=== PATIENT | female | born 1980 | race Asian ===

== ENCOUNTER 2016-07-29 08:00 | Outpatient (CLI) | payer MEDICAID | END 2016-07-29 23:59 | disposition home or self-care (01) | DX: Z36 Encounter for antenatal screening of mother (principal) ==

== ENCOUNTER 2016-08-11 10:14 | Outpatient (CLI) | payer MEDICAID | END 2016-08-11 10:15 | disposition home or self-care (01) | DX: Z36 Encounter for antenatal screening of mother (principal) ==

== ENCOUNTER 2016-08-12 12:38 | Outpatient (CLI) | payer MEDICAID | END 2016-08-12 12:39 | disposition home or self-care (01) | DX: Z36 Encounter for antenatal screening of mother (principal) ==

== ENCOUNTER 2016-09-01 13:28 | Outpatient (CLI) | payer MEDICAID | END 2016-09-01 13:29 | disposition home or self-care (01) | LOC: LAB.R 13:28 | PROVIDERS: ATTEND Obstetrics & Gynecology | DX: Z36 Encounter for antenatal screening of mother (principal) | CPT/HCPCS: 80306 ==

== ENCOUNTER 2016-09-01 14:22 | Outpatient (CLI) | payer MEDICAID ==
[2016-09-01] MEDS ORDERED: SODIUM CHLORIDE FLUSH 0.9% 10 ML SYRINGE IVP ONE (15:28)
[2016-09-01] MEDS ORDERED: FERRIC GLUCONATE 125 MG in SODIUM CHLORIDE 0.9% 100ML 100 ML IV ONE (15:30)
[2016-09-01 15:55] LABS: BASOPHILS # (AUTO) 0.2 10^3/uL (0.0-0.1); BASOPHILS % (AUTO) 1.1 %; EOSINOPHILS # (AUTO) 0.1 10^3/uL (0.0-0.7); EOSINOPHILS % (AUTO) 0.5 %; HCT - HEMATOCRIT 26.5 % (37.0-47.0); HGB - HEMOGLOBIN 8.5 g/dL (12.0-16.0); LYMPHOCYTES # (AUTO) 3.2 10^3/uL (1.5-3.5); MEAN CORPUSCULAR HEMOGLOBIN 23.2 pg (27.0-31.0); MEAN CORPUSCULAR HGB CONC 31.8 g/dL (32.0-36.0); MEAN CORPUSCULAR VOLUME 72.8 fL (81.0-99.0); MEAN PLATELET VOLUME 8.3 fL (7.9-10.8); MONOCYTES # (AUTO) 0.8 10^3/uL (0.0-1.0); NEUTROPHILS # (AUTO) 9.6 10^3/uL (1.5-6.6); NEUTROPHILS % (AUTO) 69.4 %; NUCLEATED RED BLOOD CELLS AUTO 0.2 /100WBC; RED BLOOD COUNT 3.65 10^6/uL (4.20-5.40); RED CELL DISTRIBUTION WIDTH 16.9 % (12.0-15.0); UNCORRECTED WHITE BLOOD COUNT 13.8 x10^3/uL; WHITE BLOOD COUNT 13.8 x10^3/uL (4.8-10.8)
[2016-09-01 16:08] VITALS: BP 116/81
[2016-09-04 13:30] LABS: TEST RESULT REPORT (())
== END 2016-09-01 17:20 | disposition home or self-care (01) ==
LOC: WFO 14:22 → OB 14:24 → WFO 17:20
PROVIDERS: ATTEND Obstetrics & Gynecology
DX: O99.013 Anemia complicating pregnancy, third trimester (principal); D50.9 Iron deficiency anemia, unspecified; Z3A.30 30 weeks gestation of pregnancy; Z36 Encounter for antenatal screening of mother
CPT/HCPCS: 59025; 80306; 81599; 82728; 85025; J2916; 83540; 84466; 96365

== ENCOUNTER 2016-09-28 15:55 | Outpatient (CLI) | payer MEDICAID ==
[2016-09-28 16:47] LABS: BASOPHILS # (AUTO) 0.2 10^3/uL (0.0-0.1); EOSINOPHILS # (AUTO) 0.1 10^3/uL (0.0-0.7); EOSINOPHILS % (AUTO) 0.5 %; HCT - HEMATOCRIT 28.9 % (37.0-47.0); HGB - HEMOGLOBIN 9.3 g/dL (12.0-16.0); LYMPHOCYTES % (AUTO) 19.6 %; MEAN CORPUSCULAR HEMOGLOBIN 24.1 pg (27.0-31.0); MEAN CORPUSCULAR HGB CONC 32.3 g/dL (32.0-36.0); MEAN CORPUSCULAR VOLUME 74.6 fL (81.0-99.0); MEAN PLATELET VOLUME 7.9 fL (7.9-10.8); MONOCYTES # (AUTO) 0.8 10^3/uL (0.0-1.0); NEUTROPHILS # (AUTO) 11.4 10^3/uL (1.5-6.6); NEUTROPHILS % (AUTO) 73.9 %; RED BLOOD COUNT 3.87 10^6/uL (4.20-5.40); RED CELL DISTRIBUTION WIDTH 21.4 % (12.0-15.0); UNCORRECTED WHITE BLOOD COUNT 15.4 x10^3/uL; WHITE BLOOD COUNT 15.4 x10^3/uL (4.8-10.8)
[2016-09-28 17:48] LABS: PLATELET ESTIMATE, MANUAL INCREASED (>450,000) (NORMAL); PLATELET MORPHOLOGY NORMAL APPEARANCE (NORMAL)
== END 2016-09-28 15:56 | disposition home or self-care (01) ==
LOC: LAB 15:55
PROVIDERS: ATTEND Obstetrics & Gynecology
DX: O99.013 Anemia complicating pregnancy, third trimester (principal)
CPT/HCPCS: 36415; 85025

== ENCOUNTER 2016-10-20 08:00 | Outpatient (CLI) | payer MEDICAID | END 2016-10-20 08:01 | disposition home or self-care (01) | LOC: LAB.R 08:00 | PROVIDERS: ATTEND Obstetrics & Gynecology | DX: Z34.83 Encounter for supervision of other normal pregnancy, third trimester (principal) | CPT/HCPCS: 87081 ==

== ENCOUNTER 2016-10-20 14:26 | Outpatient (CLI) | payer MEDICAID ==
[2016-10-20 14:44] VITALS: BP 116/81
== END 2016-10-20 15:36 | disposition home or self-care (01) ==
LOC: WFO 14:26 → OB 14:27 → WFO 15:36
PROVIDERS: ATTEND Obstetrics & Gynecology
DX: O36.8130 Decreased fetal movements, third trimester, not applicable or unspecified (principal); Z3A.37 37 weeks gestation of pregnancy; Z34.83 Encounter for supervision of other normal pregnancy, third trimester
CPT/HCPCS: 59025; 82570; 84156; 87081

== ENCOUNTER 2016-11-17 07:21 | Inpatient (IN) | payer MEDICAID ==
--- NOTE | 2016-11-17 09:26 | HISTORY & PHYSICAL EXAMINATION ---
DATE OF ADMISSION: 11/17/2016 IDENTIFICATION: A 35-year-old G3, P0-0-2-0, with a 41-0/7 week intrauterine . EDC is 11/10/2016, consistent with a 24-week ultrasound. HISTORY OF PRESENT ILLNESS: This is a patient of [facility] who established late care beginning on 07/29/2016 at 25 weeks' gestation. The patient has since then consistently seen us as appropriate. This has been remarkable for late care, marijuana use, and iron deficiency anemia in which she did get an iron transfusion at 30 weeks' gestation secondary to a ferritin of 7.1. Her H and H at that time were 8.5 and 26.5. Med screen was negative. The patient had her last visit on 11/16/2016 and was 40 weeks and 6 days. She denied having any contractions, vaginal bleeding, or loss of fluid. She also reported the baby is moving well. Cervical examination, however, was difficult since the patient did not tolerate a pelvic exam that well. In any event, her cervix was 60% effaced, posterior, -3, but very soft. I discussed with the patient that at 41 weeks, the recommendations are either to do a nonstress test and conservatively manage versus doing an induction of labor. I discussed with her the risks, benefits, alternatives, indications and expectations of an induction of labor. The patient at this point in time decided she would like to proceed with an induction of labor. Jozet's BP is noted to be elevated today. Labs remarkable for mildly elevated AST. PAST MEDICAL HISTORY: Anxiety. PAST SURGICAL HISTORY: None. ALLERGIES: NO KNOWN DRUG ALLERGIES. MEDICATIONS: vitamins. SOCIAL HISTORY: She is smoking 3-10 cigarettes per day and admits to smoking methamphetamines early in this . She stopped drinking alcohol last summer. The patient is from [place]. The father of the baby is Kyle and he has been very actively involved in this . Kyle has 3 other healthy children. They will likely use the [facility] for the baby care and the patient at this point to pump, as well as give breast milk. She will desire an epidural for pain control. This is a baby boy with anticipated name of Reverend Gary Rausch. PAST OBSTETRICAL HISTORY: Two therapeutic abortions. PAST GYNECOLOGIC HISTORY: She denies any abnormal Pap smears or sexually transmitted diseases. FAMILY HISTORY: Breast and brain cancer on the paternal side. REVIEW OF SYSTEMS: She denies any nausea, vomiting, fevers, chills, diarrhea or constipation. Negative unless otherwise stated. OBJECTIVE VITAL SIGNS: Weight is 188 pounds. Height is 65 inches. BMI is 31.3. Blood pressure 130/80. GENERAL: The patient is a well-developed, a well-nourished female in no apparent distress. She is alert and oriented x3. HEAD, EYES, EARS, NOSE, AND THROAT: Within normal limits. CARDIOVASCULAR: Rate is regular, no murmurs or rubs. PULMONARY: Lungs are clear to auscultation bilaterally. ABDOMEN: Gravid, nontender. Fundal height today 39 cm. Estimated weight 8 pounds. LABS: Reveal that her Pap smear on 07/29/2016 was ASCUS, chlamydia and gonorrhea negative. High risk HPV is negative. Blood type A positive. One hour GTT is 77. Rubella is immune. Hepatitis B surface antigen is negative. GBS is negative. RPR was essentially not performed. Rubella immune, and 08/11/2016 anatomical survey at 26 weeks' gestation was consistent with dates and within normal limits, posterior placenta. Cervical length was 3.5 cm with JHONNY of 18.0 cm. ASSESSMENT 1. A 35-year-old G3, P0-0-2-0, with a 41-0/7 week intrauterine . 2. Cervix remote from delivery. 3. HELLP unless proven otherwise. PLAN 1. Will proceed to cervical ripening with conversion to Pitocin when cervix is favorable. 2. Anticipate giving the patient an epidural for pain control. 3. Anticipate checking her ferritin, as well as doing an RPR since it is not on her panel. 4. Will do a U-tox upon presentation. 5. Expect a spontaneous vaginal delivery. JOB #: [id number] EXT JOB #:[id number] BHARATH
[2016-11-17 09:27] LABS: BASOPHILS # (AUTO) 0.1 10^3/uL (0.0-0.1); BASOPHILS % (AUTO) 0.8 %; EOSINOPHILS # (AUTO) 0.1 10^3/uL (0.0-0.7); EOSINOPHILS % (AUTO) 0.5 %; HCT - HEMATOCRIT 34.3 % (37.0-47.0); LYMPHOCYTES # (AUTO) 3.4 10^3/uL (1.5-3.5); LYMPHOCYTES % (AUTO) 24.5 %; MEAN CORPUSCULAR HEMOGLOBIN 25.4 pg (27.0-31.0); MEAN CORPUSCULAR HGB CONC 32.1 g/dL (32.0-36.0); MEAN CORPUSCULAR VOLUME 78.9 fL (81.0-99.0); MEAN PLATELET VOLUME 7.6 fL (7.9-10.8); MONOCYTES # (AUTO) 0.9 10^3/uL (0.0-1.0); MONOCYTES % (AUTO) 6.5 %; NEUTROPHILS # (AUTO) 9.3 10^3/uL (1.5-6.6); NEUTROPHILS % (AUTO) 67.7 %; NUCLEATED RED BLOOD CELLS AUTO 0.3 /100WBC; RED BLOOD COUNT 4.35 10^6/uL (4.20-5.40); UNCORRECTED WHITE BLOOD COUNT 13.8 x10^3/uL; WHITE BLOOD COUNT 13.8 x10^3/uL (4.8-10.8)
[2016-11-17 09:33] LABS: CREATININE 0.6 mg/dL (0.4-1.0)
[2016-11-17 10:13] LABS: PLATELET ESTIMATE, MANUAL NORMAL (130-450,000) (NORMAL); PLATELET MORPHOLOGY 1+ GIANT PLATELETS (NORMAL)
[2016-11-17 10:16] LABS: WBC MORPHOLOGY (MULTIPLE) 1+ REACTIVE LYMPHS (NORMAL)
--- NOTE | 2016-11-17 10:53 | PROVIDER PROGRESS NOTE ---
Labor Progress Note - Uterine Monitoring Uterine Monitoring Mode: positive: External toco Contraction Frequency (min/apart): None Uterine Resting Tone: positive: Soft - Monitoring Monitor Mode: positive: External ultrasound Heart Rate Baseline: 130's Heart Rate Variability: positive: Moderate (6-25 bmp) Accelerations: positive: Present, 15x15 Decelerations: positive: None - Labor Progress Note Labor Progress Note/Additional Text: 35 yo with a 41w0d IUP New onset elevated BP's with mildly elevated AST-- HELLP unless proven otherwise Cervical ripening then pitocin Magnesium intrapartum Expect Labs, EKG, Meds, Allergy - Lab Results Lab results reviewed: Yes Fish Bones: 11/17/16 09:06 11/17/16 09:06 Other Lab Results: Lab Results x24hrs 11/17/16 11/17/16 11/17/16 Range/Units 09:06 09:06 09:06 WBC (4.8-10.8) x10^3/uL RBC (4.20-5.40) 10^6/uL Hgb (12.0-16.0) g/dL Hct (37.0-47.0) % MCV (81.0-99.0) fL MCH (27.0-31.0) pg MCHC (32.0-36.0) g/dL RDW (12.0-15.0) % Plt Count (130-450) 10^3/uL MPV (7.9-10.8) fL Neut # (1.5-6.6) 10^3/uL Lymph # (1.5-3.5) 10^3/uL [place] # (0.0-1.0) 10^3/uL Eos # (0.0-0.7) 10^3/uL Baso # (0.0-0.1) 10^3/uL Absolute Nucleated RBC x10^3/uL Nucleated RBCs /100WBC Manual Slide Review WBC Morphology (NORMAL) Platelet Estimate (NORMAL) Platelet Morphology (NORMAL) RBC Morph Micro Appear (NORMAL) Creatinine 0.6 (0.4-1.0) mg/dL Estimated GFR (MDRD) 112 (>89) Ferritin 17.4 (11.0-306.8) ng/mL AST 46 H (10-42) IU/L Lactate Dehydrogenase 175 (91-225) IU/L Urine Color Urine Clarity (CLEAR) Urine pH (5.0-7.5) PH Ur Specific [place] (1.002-1.030) Urine Protein (NEGATIVE) mg/dL Urine Glucose (UA) (NEGATIVE) mg/dL Urine Ketones (NEGATIVE) mg/dL Urine Occult Blood (NEGATIVE) Urine Nitrite (NEGATIVE) Urine Bilirubin (NEGATIVE) Urine Urobilinogen (NORMAL) E.U./dL Ur Leukocyte Esterase (NEGATIVE) Urine RBC (0-5) /HPF Urine WBC (0-5) /HPF Ur Squamous Epith Cells (<= Few) Urine Bacteria (None Seen) /HPF Urine Mucus Urine Culture Comments Urine Creatinine mg/dL Ur Total Protein Timed mg/dL Protein/Creatinin Ratio Urine Opiates Screen (NEGATIVE) Ur Oxycodone Screen (NEGATIVE) Urine Methadone Screen (NEGATIVE) Ur Propoxyphene Screen (NEGATIVE) Ur Barbiturates Screen (NEGATIVE) Ur Tricyclics Screen (NEGATIVE) Ur Phencyclidine Scrn (NEGATIVE) Ur Amphetamine Screen (NEGATIVE) U Methamphetamines Scrn (NEGATIVE) U Benzodiazepines Scrn (NEGATIVE) Urine Cocaine Screen (NEGATIVE) U Cannabinoids Screen (NEGATIVE) 11/17/16 11/16/16 11/16/16 Range/Units 09:06 09:06 08:35 WBC 13.8 H (4.8-10.8) x10^3/uL RBC 4.35 (4.20-5.40) 10^6/uL Hgb 11.0 L (12.0-16.0) g/dL Hct 34.3 L (37.0-47.0) % MCV 78.9 L (81.0-99.0) fL MCH 25.4 L (27.0-31.0) pg MCHC 32.1 (32.0-36.0) g/dL RDW 24.0 H (12.0-15.0) % Plt Count 387 (130-450) 10^3/uL MPV 7.6 L (7.9-10.8) fL Neut # 9.3 H (1.5-6.6) 10^3/uL Lymph # 3.4 (1.5-3.5) 10^3/uL [place] # 0.9 (0.0-1.0) 10^3/uL Eos # 0.1 (0.0-0.7) 10^3/uL Baso # 0.1 (0.0-0.1) 10^3/uL Absolute Nucleated RBC 0.04 x10^3/uL Nucleated RBCs 0.3 /100WBC Manual Slide Review Indicated WBC Morphology 1+ REACTIVE LYMPHS (NORMAL) Platelet Estimate NORMAL (130-450,000) (NORMAL) Platelet Morphology 1+ GIANT PLATELETS (NORMAL) RBC Morph Micro Appear 1+ POLYCHROMASIA (NORMAL) Creatinine (0.4-1.0) mg/dL Estimated GFR (MDRD) (>89) Ferritin (11.0-306.8) ng/mL AST (10-42) IU/L Lactate Dehydrogenase (91-225) IU/L Urine Color YELLOW Urine Clarity CLEAR (CLEAR) Urine pH 6.0 (5.0-7.5) PH Ur Specific [place] <=1.005 (1.002-1.030) Urine Protein NEGATIVE (NEGATIVE) mg/dL Urine Glucose (UA) NEGATIVE (NEGATIVE) mg/dL Urine Ketones NEGATIVE (NEGATIVE) mg/dL Urine Occult Blood NEGATIVE (NEGATIVE) Urine Nitrite NEGATIVE (NEGATIVE) Urine Bilirubin NEGATIVE (NEGATIVE) Urine Urobilinogen 0.2 (NORMAL) (NORMAL) E.U./dL Ur Leukocyte Esterase NEGATIVE (NEGATIVE) Urine RBC 0-5 (0-5) /HPF Urine WBC 0-3 (0-5) /HPF Ur Squamous Epith Cells NONE SEEN (<= Few) Urine Bacteria None Seen (None Seen) /HPF Urine Mucus Few Strands Urine Culture Comments NOT INDICATED Urine Creatinine 31.2 mg/dL Ur Total Protein Timed < 6 mg/dL Protein/Creatinin Ratio Not Reportable Urine Opiates Screen NEGATIVE (NEGATIVE) Ur Oxycodone Screen NEGATIVE (NEGATIVE) Urine Methadone Screen NEGATIVE (NEGATIVE) Ur Propoxyphene Screen NEGATIVE (NEGATIVE) Ur Barbiturates Screen NEGATIVE (NEGATIVE) Ur Tricyclics Screen NEGATIVE (NEGATIVE) Ur Phencyclidine Scrn NEGATIVE (NEGATIVE) Ur Amphetamine Screen NEGATIVE (NEGATIVE) U Methamphetamines Scrn NEGATIVE (NEGATIVE) U Benzodiazepines Scrn NEGATIVE (NEGATIVE) Urine Cocaine Screen NEGATIVE (NEGATIVE) U Cannabinoids Screen NEGATIVE (NEGATIVE) - Medications Medications: Ambulatory Orders Medication Instructions Recorded Confirmed Ascorbic Acid [Vitamin C] 1,000 mg PO DAILY 10/16/16 10/16/16 Ferrous Sulfate 325 mg PO DAILY 10/16/16 10/16/16 [id number]/FA/Omega3/Dha/Fish Oil 2 each PO DAILY 10/16/16 10/16/16 [ Gummies] - Allergy Allergy: Allergies Allergy/AdvReac Type Severity Reaction Status Date / Time No Known Drug Allergies Allergy Verified 10/16/16 15:07 Ascorbic Acid [Vitamin C] 1,000 mg PO DAILY 10/16/16 Ferrous Sulfate 325 mg PO DAILY 10/16/16 Sty999/FA/Omega3/Dha/Fish Oil [ Gummies] 2 each PO DAILY 10/16/16
[2016-11-17] MEDS ORDERED: ONDANSETRON 4 MG/2 ML VIAL IVP PRN ×2 (11:06→23:05)
[2016-11-17] MEDS ORDERED: fentaNYL 100 MCG/2 ML VIAL IVP PRN (11:06)
--- NOTE | 2016-11-17 11:11 | PROVIDER PROGRESS NOTE ---
Labor Progress Note - Labor Progress Note Labor Progress Note/Additional Text: Will continue to monitor patient's BP's for now. Induction on hold due to patient census.
[2016-11-17 11:24] LABS: BILIRUBIN,URINE NEGATIVE (NEGATIVE)
[2016-11-17 11:25] LABS: UR CULTURE IF IND NOT INDICATED; WBC,URINE 0-3 /HPF (0-5)
--- NOTE | 2016-11-17 15:43 | PROVIDER PROGRESS NOTE ---
Labor Progress Note - Labor Progress Note Labor Progress Note/Additional Text: 35 yo with a 41w0d IUP HELLP Other patient delivered. Will start induction of labor via cervical ripening. Will use cervidil for ripening. Patient has postponed IV start since she is afraid of needles. Carefully will watch BP's.
[2016-11-17] MEDS ORDERED: DINOPROSTONE 10 MG SUPP VG ONE (15:47)
[2016-11-17] MEDS ORDERED: ZOLPIDEM 5 MG TABLET PO PRN (16:31)
[2016-11-17] MEDS: SODIUM CHLORIDE FLUSH 0.9% 10 ML SYRINGE IVP PRN (17:00)
[2016-11-17] MEDS: CALCIUM CARBONATE CHEW 500 MG TABLET PO SCH (18:55)
[2016-11-17] MEDS ORDERED: fent/BUPIV 2 MCG/0.125% 250 ML EP ONE (22:50)
[2016-11-17] MEDS ORDERED: NALBUPHINE 20 MG/ML AMP IVP PRN (23:05)
[2016-11-17] MEDS ORDERED: LACTATED RINGERS 500 ML IV ONE (23:05)
[2016-11-17] MEDS ORDERED: diphenhydrAMINE INJ 50 MG/ML VIAL IVP PRN (23:05)
[2016-11-17] MEDS ORDERED: NALOXONE 0.4 MG/ML VIAL IVP PRN (23:05)
[2016-11-17] MEDS ORDERED: fent/BUPIV 2 MCG/0.125% 250 ML EP PRN (23:05)
[2016-11-17] MEDS ORDERED: ePHEDrine 50 MG/ML VIAL IVP PRN (23:05)
[2016-11-17] MEDS ORDERED: METOCLOPRAMIDE 10 MG/2 ML VIAL IVP PRN (23:05)
--- NOTE | 2016-11-18 01:21 | PROVIDER PROGRESS NOTE ---
Labor Progress Note - Uterine Monitoring Uterine Monitoring Mode: positive: External toco Contraction Frequency (min/apart): Q3-4 min Contraction Intensity: positive: Moderate to strong Uterine Resting Tone: positive: Soft - Monitoring Monitor Mode: positive: External ultrasound Heart Rate Baseline: 130's Heart Rate Variability: positive: Moderate (6-25 bmp) Accelerations: positive: Present, 15x15 Decelerations: positive: None Strip Review: positive: Category I - Vaginal Exam Dilation (in cm): 5 Effacement (%): 90 Station: -1 - Labor Progress Note Labor Progress Note/Additional Text: 35 yo witha 41w1d HELLP, currently normotensive and asymptomatic Active labor Epidural in place and working well Expect Closely monitor strip and BP's Labs, EKG, Meds, Allergy - Lab Results Lab results reviewed: Yes Fish Bones: 11/17/16 09:06 11/17/16 09:06 Other Lab Results: Lab Results x24hrs 11/17/16 11/17/16 11/17/16 Range/Units 09:06 09:06 09:06 WBC (4.8-10.8) x10^3/uL RBC (4.20-5.40) 10^6/uL Hgb (12.0-16.0) g/dL Hct (37.0-47.0) % MCV (81.0-99.0) fL MCH (27.0-31.0) pg MCHC (32.0-36.0) g/dL RDW (12.0-15.0) % Plt Count (130-450) 10^3/uL MPV (7.9-10.8) fL Neut # (1.5-6.6) 10^3/uL Lymph # (1.5-3.5) 10^3/uL [place] # (0.0-1.0) 10^3/uL Eos # (0.0-0.7) 10^3/uL Baso # (0.0-0.1) 10^3/uL Absolute Nucleated RBC x10^3/uL Nucleated RBCs /100WBC Manual Slide Review WBC Morphology (NORMAL) Platelet Estimate (NORMAL) Platelet Morphology (NORMAL) RBC Morph Micro Appear (NORMAL) Creatinine 0.6 (0.4-1.0) mg/dL Estimated GFR (MDRD) 112 (>89) Ferritin 17.4 (11.0-306.8) ng/mL AST 46 H (10-42) IU/L Lactate Dehydrogenase 175 (91-225) IU/L Urine Color Urine Clarity Urine pH Ur Specific [place] Urine Protein Urine Glucose (UA) Urine Ketones Urine Occult Blood Urine Nitrite Urine Bilirubin Urine Urobilinogen Ur Leukocyte Esterase Urine RBC Urine WBC Urine WBC Clumps Ur Epithelial Cells Ur Squamous Epith Cells Urine Crystals Amorphous Sediment Urine Bacteria Urine Casts Urine Starch Urine Mucus Urine Trichomonas Urine Yeast Urine Sperm Ur Oval Fat Bodies Urine Culture Comments Urine Creatinine Ur Total Protein Timed Protein/Creatinin Ratio Urine Opiates Screen Ur Oxycodone Screen Urine Methadone Screen Ur Propoxyphene Screen Ur Barbiturates Screen Ur Tricyclics Screen Ur Phencyclidine Scrn Ur Amphetamine Screen U Methamphetamines Scrn U Benzodiazepines Scrn Urine Cocaine Screen U Cannabinoids Screen 11/17/16 11/17/16 11/17/16 Range/Units 09:06 08:35 08:35 WBC 13.8 H (4.8-10.8) x10^3/uL RBC 4.35 (4.20-5.40) 10^6/uL Hgb 11.0 L (12.0-16.0) g/dL Hct 34.3 L (37.0-47.0) % MCV 78.9 L (81.0-99.0) fL MCH 25.4 L (27.0-31.0) pg MCHC 32.1 (32.0-36.0) g/dL RDW 24.0 H (12.0-15.0) % Plt Count 387 (130-450) 10^3/uL MPV 7.6 L (7.9-10.8) fL Neut # 9.3 H (1.5-6.6) 10^3/uL Lymph # 3.4 (1.5-3.5) 10^3/uL [place] # 0.9 (0.0-1.0) 10^3/uL Eos # 0.1 (0.0-0.7) 10^3/uL Baso # 0.1 (0.0-0.1) 10^3/uL Absolute Nucleated RBC 0.04 x10^3/uL Nucleated RBCs 0.3 /100WBC Manual Slide Review Indicated WBC Morphology 1+ REACTIVE LYMPHS (NORMAL) Platelet Estimate NORMAL (130-450,000) (NORMAL) Platelet Morphology 1+ GIANT PLATELETS (NORMAL) RBC Morph Micro Appear 1+ POLYCHROMASIA (NORMAL) Creatinine (0.4-1.0) mg/dL Estimated GFR (MDRD) (>89) Ferritin (11.0-306.8) ng/mL AST (10-42) IU/L Lactate Dehydrogenase (91-225) IU/L Urine Color YELLOW Urine Clarity CLEAR Urine pH 6.0 Ur Specific [place] <=1.005 Urine Protein NEGATIVE Urine Glucose (UA) NEGATIVE Urine Ketones NEGATIVE Urine Occult Blood NEGATIVE Urine Nitrite NEGATIVE Urine Bilirubin NEGATIVE Urine Urobilinogen 0.2 (NORMAL) Ur Leukocyte Esterase NEGATIVE Urine RBC 0-5 Urine WBC 0-3 Urine WBC Clumps Ur Epithelial Cells Ur Squamous Epith Cells NONE SEEN Urine Crystals Amorphous Sediment Urine Bacteria None Seen Urine Casts Urine Starch Urine Mucus Few Strands Urine Trichomonas Urine Yeast Urine Sperm Ur Oval Fat Bodies Urine Culture Comments NOT INDICATED Urine Creatinine 31.3 Ur Total Protein Timed < 6 Protein/Creatinin Ratio Not Reportable Urine Opiates Screen NEGATIVE Ur Oxycodone Screen NEGATIVE Urine Methadone Screen NEGATIVE Ur Propoxyphene Screen NEGATIVE Ur Barbiturates Screen NEGATIVE Ur Tricyclics Screen NEGATIVE Ur Phencyclidine Scrn NEGATIVE Ur Amphetamine Screen NEGATIVE U Methamphetamines Scrn NEGATIVE U Benzodiazepines Scrn NEGATIVE Urine Cocaine Screen NEGATIVE U Cannabinoids Screen NEGATIVE 11/16/16 11/16/16 Range/Units 09:06 08:35 WBC (4.8-10.8) x10^3/uL RBC (4.20-5.40) 10^6/uL Hgb (12.0-16.0) g/dL Hct (37.0-47.0) % MCV (81.0-99.0) fL MCH (27.0-31.0) pg MCHC (32.0-36.0) g/dL RDW (12.0-15.0) % Plt Count (130-450) 10^3/uL MPV (7.9-10.8) fL Neut # (1.5-6.6) 10^3/uL Lymph # (1.5-3.5) 10^3/uL [place] # (0.0-1.0) 10^3/uL Eos # (0.0-0.7) 10^3/uL Baso # (0.0-0.1) 10^3/uL Absolute Nucleated RBC x10^3/uL Nucleated RBCs /100WBC Manual Slide Review WBC Morphology (NORMAL) Platelet Estimate (NORMAL) Platelet Morphology (NORMAL) RBC Morph Micro Appear (NORMAL) Creatinine (0.4-1.0) mg/dL Estimated GFR (MDRD) (>89) Ferritin (11.0-306.8) ng/mL AST (10-42) IU/L Lactate Dehydrogenase (91-225) IU/L Urine Color Cancelled Urine Clarity Cancelled Urine pH Cancelled Ur Specific [place] Cancelled Urine Protein Cancelled Urine Glucose (UA) Cancelled Urine Ketones Cancelled Urine Occult Blood Cancelled Urine Nitrite Cancelled Urine Bilirubin Cancelled Urine Urobilinogen Cancelled Ur Leukocyte Esterase Cancelled Urine RBC Cancelled Urine WBC Cancelled Urine WBC Clumps Cancelled Ur Epithelial Cells Cancelled Ur Squamous Epith Cells Cancelled Urine Crystals Cancelled Amorphous Sediment Cancelled Urine Bacteria Cancelled Urine Casts Cancelled Urine Starch Cancelled Urine Mucus Cancelled Urine Trichomonas Cancelled Urine Yeast Cancelled Urine Sperm Cancelled Ur Oval Fat Bodies Cancelled Urine Culture Comments Cancelled Urine Creatinine Cancelled Ur Total Protein Timed Cancelled Protein/Creatinin Ratio Cancelled Urine Opiates Screen Cancelled Ur Oxycodone Screen Cancelled Urine Methadone Screen Cancelled Ur Propoxyphene Screen Cancelled Ur Barbiturates Screen Cancelled Ur Tricyclics Screen Cancelled Ur Phencyclidine Scrn Cancelled Ur Amphetamine Screen Cancelled U Methamphetamines Scrn Cancelled U Benzodiazepines Scrn Cancelled Urine Cocaine Screen Cancelled U Cannabinoids Screen Cancelled - Medications Medications: Ambulatory Orders Medication Instructions Recorded Confirmed Ascorbic Acid [Vitamin C] 1,000 mg PO DAILY 10/16/16 10/16/16 Ferrous Sulfate 325 mg PO DAILY 10/16/16 10/16/16 [id number]/FA/Omega3/Dha/Fish Oil 2 each PO DAILY 10/16/16 10/16/16 [ Gummies] - Allergy Allergy: Allergies Allergy/AdvReac Type Severity Reaction Status Date / Time No Known Drug Allergies Allergy Verified 10/16/16 15:07 Ascorbic Acid [Vitamin C] 1,000 mg PO DAILY 10/16/16 Ferrous Sulfate 325 mg PO DAILY 10/16/16 [id number]/FA/Omega3/Dha/Fish Oil [ Gummies] 2 each PO DAILY 10/16/16
[2016-11-18] MEDS: ACETAMINOPHEN 325 MG TABLET PO SCH ×2 (01:36→01:41)
[2016-11-18] MEDS ORDERED: MINERAL OIL LIGHT 10 ML MC ONE (05:35)
[2016-11-18] MEDS ORDERED: OXYTOCIN/LACTATED RINGERS 250 ML IV ONE ×2 (05:35→08:39)
--- NOTE | 2016-11-18 06:05 | PROVIDER PROGRESS NOTE ---
Labor Progress Note - Uterine Monitoring Uterine Monitoring Mode: positive: External toco Contraction Frequency (min/apart): Q2-4 Contraction Intensity: positive: Moderate to strong Uterine Resting Tone: positive: Soft - Monitoring Monitor Mode: positive: External ultrasound Heart Rate Variability: positive: Moderate (6-25 bmp) Accelerations: positive: Present, 15x15 Decelerations: positive: None Strip Review: positive: Category I - Vaginal Exam Dilation (in cm): 10 Effacement (%): 100 - Labor Progress Note Labor Progress Note/Additional Text: 35 yo with a 41w1d IUP Active labor HELLP-- soft call with elevated BP's yesterday AM and mildly elevated AST 46. No other clinical symptoms such as RUQ tenderness, headaches, visual changes, facial edema etc. MgSO4 held at this time. Continue epidural for pain control Expect shortly MgSO4 after delivery x 12 hours Repeat pre-eclampsia labs after delivery
--- NOTE | 2016-11-18 06:52 | PROVIDER PROGRESS NOTE ---
Labor Progress Note - Uterine Monitoring Uterine Monitoring Mode: positive: External toco Contraction Frequency (min/apart): Q2-4 minutes Contraction Intensity: positive: Moderate Uterine Resting Tone: positive: Soft - Monitoring Monitor Mode: positive: External ultrasound, Spiral electrode Heart Rate Baseline: 120 - 130's Heart Rate Variability: positive: Moderate (6-25 bmp) Accelerations: positive: Present, 15x15 Decelerations: positive: Early Strip Review: positive: Category I - Vaginal Exam Dilation (in cm): 10 Effacement (%): 100 Station: 0 (Platypelloid maternal pelvis) - Labor Progress Note Labor Progress Note/Additional Text: 35 yo with a 41w1d IUP Soft call HELLP Active labor Epidural in place and working well Reassuring and maternal status On exam, maternal pelvis feels platypelloid, concerning for failure to descend. No significant scalp edema yet. Will continue to push. If no significant descent may have to consider a delivery. L&D Objective - Patient Data Weight: Weight 11/16/16 11/17/16 11/18/16 23:59 23:59 23:59 Weight (kg) 85.275 kg Intake & Output: Intake and Output Totals x24h 11/16/16 11/17/16 11/18/16 23:59 23:59 23:59 Intake Total 2000 300 Output Total 1 400 Balance 1998 - Lab Results Lab Results: 11/17/16 09:06 11/17/16 09:06 Other Lab Results: Lab Results x24hrs 11/17/16 11/17/16 11/17/16 Range/Units 09:06 09:06 09:06 WBC (4.8-10.8) x10^3/uL RBC (4.20-5.40) 10^6/uL Hgb (12.0-16.0) g/dL Hct (37.0-47.0) % MCV (81.0-99.0) fL MCH (27.0-31.0) pg MCHC (32.0-36.0) g/dL RDW (12.0-15.0) % Plt Count (130-450) 10^3/uL MPV (7.9-10.8) fL Neut # (1.5-6.6) 10^3/uL Lymph # (1.5-3.5) 10^3/uL [place] # (0.0-1.0) 10^3/uL Eos # (0.0-0.7) 10^3/uL Baso # (0.0-0.1) 10^3/uL Absolute Nucleated RBC x10^3/uL Nucleated RBCs /100WBC Manual Slide Review WBC Morphology (NORMAL) Platelet Estimate (NORMAL) Platelet Morphology (NORMAL) RBC Morph Micro Appear (NORMAL) Creatinine 0.6 (0.4-1.0) mg/dL Estimated GFR (MDRD) 112 (>89) Ferritin 17.4 (11.0-306.8) ng/mL AST 46 H (10-42) IU/L Lactate Dehydrogenase 175 (91-225) IU/L Urine Color Urine Clarity Urine pH Ur Specific [place] Urine Protein Urine Glucose (UA) Urine Ketones Urine Occult Blood Urine Nitrite Urine Bilirubin Urine Urobilinogen Ur Leukocyte Esterase Urine RBC Urine WBC Urine WBC Clumps Ur Epithelial Cells Ur Squamous Epith Cells Urine Crystals Amorphous Sediment Urine Bacteria Urine Casts Urine Starch Urine Mucus Urine Trichomonas Urine Yeast Urine Sperm Ur Oval Fat Bodies Urine Culture Comments Urine Creatinine Ur Total Protein Timed Protein/Creatinin Ratio Urine Opiates Screen Ur Oxycodone Screen Urine Methadone Screen Ur Propoxyphene Screen Ur Barbiturates Screen Ur Tricyclics Screen Ur Phencyclidine Scrn Ur Amphetamine Screen U Methamphetamines Scrn U Benzodiazepines Scrn Urine Cocaine Screen U Cannabinoids Screen 11/17/16 11/17/16 11/17/16 Range/Units 09:06 08:35 08:35 WBC 13.8 H (4.8-10.8) x10^3/uL RBC 4.35 (4.20-5.40) 10^6/uL Hgb 11.0 L (12.0-16.0) g/dL Hct 34.3 L (37.0-47.0) % MCV 78.9 L (81.0-99.0) fL MCH 25.4 L (27.0-31.0) pg MCHC 32.1 (32.0-36.0) g/dL RDW 24.0 H (12.0-15.0) % Plt Count 387 (130-450) 10^3/uL MPV 7.6 L (7.9-10.8) fL Neut # 9.3 H (1.5-6.6) 10^3/uL Lymph # 3.4 (1.5-3.5) 10^3/uL [place] # 0.9 (0.0-1.0) 10^3/uL Eos # 0.1 (0.0-0.7) 10^3/uL Baso # 0.1 (0.0-0.1) 10^3/uL Absolute Nucleated RBC 0.04 x10^3/uL Nucleated RBCs 0.3 /100WBC Manual Slide Review Indicated WBC Morphology 1+ REACTIVE LYMPHS (NORMAL) Platelet Estimate NORMAL (130-450,000) (NORMAL) Platelet Morphology 1+ GIANT PLATELETS (NORMAL) RBC Morph Micro Appear 1+ POLYCHROMASIA (NORMAL) Creatinine (0.4-1.0) mg/dL Estimated GFR (MDRD) (>89) Ferritin (11.0-306.8) ng/mL AST (10-42) IU/L Lactate Dehydrogenase (91-225) IU/L Urine Color YELLOW Urine Clarity CLEAR Urine pH 6.0 Ur Specific [place] <=1.005 Urine Protein NEGATIVE Urine Glucose (UA) NEGATIVE Urine Ketones NEGATIVE Urine Occult Blood NEGATIVE Urine Nitrite NEGATIVE Urine Bilirubin NEGATIVE Urine Urobilinogen 0.2 (NORMAL) Ur Leukocyte Esterase NEGATIVE Urine RBC 0-5 Urine WBC 0-3 Urine WBC Clumps Ur Epithelial Cells Ur Squamous Epith Cells NONE SEEN Urine Crystals Amorphous Sediment Urine Bacteria None Seen Urine Casts Urine Starch Urine Mucus Few Strands Urine Trichomonas Urine Yeast Urine Sperm Ur Oval Fat Bodies Urine Culture Comments NOT INDICATED Urine Creatinine 31.3 Ur Total Protein Timed < 6 Protein/Creatinin Ratio Not Reportable Urine Opiates Screen NEGATIVE Ur Oxycodone Screen NEGATIVE Urine Methadone Screen NEGATIVE Ur Propoxyphene Screen NEGATIVE Ur Barbiturates Screen NEGATIVE Ur Tricyclics Screen NEGATIVE Ur Phencyclidine Scrn NEGATIVE Ur Amphetamine Screen NEGATIVE U Methamphetamines Scrn NEGATIVE U Benzodiazepines Scrn NEGATIVE Urine Cocaine Screen NEGATIVE U Cannabinoids Screen NEGATIVE 11/16/16 11/16/16 Range/Units 09:06 08:35 WBC (4.8-10.8) x10^3/uL RBC (4.20-5.40) 10^6/uL Hgb (12.0-16.0) g/dL Hct (37.0-47.0) % MCV (81.0-99.0) fL MCH (27.0-31.0) pg MCHC (32.0-36.0) g/dL RDW (12.0-15.0) % Plt Count (130-450) 10^3/uL MPV (7.9-10.8) fL Neut # (1.5-6.6) 10^3/uL Lymph # (1.5-3.5) 10^3/uL [place] # (0.0-1.0) 10^3/uL Eos # (0.0-0.7) 10^3/uL Baso # (0.0-0.1) 10^3/uL Absolute Nucleated RBC x10^3/uL Nucleated RBCs /100WBC Manual Slide Review WBC Morphology (NORMAL) Platelet Estimate (NORMAL) Platelet Morphology (NORMAL) RBC Morph Micro Appear (NORMAL) Creatinine (0.4-1.0) mg/dL Estimated GFR (MDRD) (>89) Ferritin (11.0-306.8) ng/mL AST (10-42) IU/L Lactate Dehydrogenase (91-225) IU/L Urine Color Cancelled Urine Clarity Cancelled Urine pH Cancelled Ur Specific [place] Cancelled Urine Protein Cancelled Urine Glucose (UA) Cancelled Urine Ketones Cancelled Urine Occult Blood Cancelled Urine Nitrite Cancelled Urine Bilirubin Cancelled Urine Urobilinogen Cancelled Ur Leukocyte Esterase Cancelled Urine RBC Cancelled Urine WBC Cancelled Urine WBC Clumps Cancelled Ur Epithelial Cells Cancelled Ur Squamous Epith Cells Cancelled Urine Crystals Cancelled Amorphous Sediment Cancelled Urine Bacteria Cancelled Urine Casts Cancelled Urine Starch Cancelled Urine Mucus Cancelled Urine Trichomonas Cancelled Urine Yeast Cancelled Urine Sperm Cancelled Ur Oval Fat Bodies Cancelled Urine Culture Comments Cancelled Urine Creatinine Cancelled Ur Total Protein Timed Cancelled Protein/Creatinin Ratio Cancelled Urine Opiates Screen Cancelled Ur Oxycodone Screen Cancelled Urine Methadone Screen Cancelled Ur Propoxyphene Screen Cancelled Ur Barbiturates Screen Cancelled Ur Tricyclics Screen Cancelled Ur Phencyclidine Scrn Cancelled Ur Amphetamine Screen Cancelled U Methamphetamines Scrn Cancelled U Benzodiazepines Scrn Cancelled Urine Cocaine Screen Cancelled U Cannabinoids Screen Cancelled - Current Medication Orders Current Medication Orders: Current Medications Generic Name Dose Route Start Last Admin Trade Name Freq PRN Reason Stop Dose Admin Acetaminophen 650 mg 11/17/16 12:00 11/18/16 01:41 Tylenol PO Not Given Q6H VINEET Calcium Carbonate/Glycine 500 mg 11/17/16 18:00 11/17/16 18:55 Tums PO 500 mg BID VINEET Administration Fentanyl 50 mcg 11/17/16 11:06 11/17/16 21:10 Fentanyl IVP 50 mcg Q1H PRN Administration PAIN Ranitidine HCl 150 mg 11/17/16 17:30 11/17/16 18:55 Zantac PO 150 mg DAILY VINEET Administration Sodium Chloride 10 ml 11/17/16 11:06 11/17/16 17:00 Normal Saline Flush 0.9% IVP 10 ml PRN PRN Administration NEEDED PER PROVIDER ORDERS
[2016-11-18] MEDS ORDERED: LIDOCAINE 1% 50 ML MDV ONE (07:29)
--- NOTE | 2016-11-18 08:38 | DELIVERY NOTE ---
Delivery Note - Labor Labor: positive: Spontaneous - Delivery Method Delivery Method: positive: Spontaneous vaginal delivery - Presentation Presentation: positive: Vertex, RADHA - right occiput anterior - Nuchal Cord Nuchal Cord: positive: None - Amniotic Fluid Description Amniotic Fluid Description: positive: Light meconium - Episiotomy Type Episiotomy Type: positive: None - Laceration Laceration: positive: 1st degree - Delivery Outcome Delivery Outcome: positive: Livebirth - [place]: positive: Bulb syringe [place] sex: positive: Male : 9 : 9 - Cord Cord: positive: 3 vessels - Placenta Placenta: positive: Intact, Spontaneous, Meconium stained - Estimated Blood Loss Estimated Blood Loss (in cc): 300 - Post Delivery Events Post Delivery Events: positive: No post delivery events (35 yo with a 41w0d presented to L&D for a postdates induction of labor. Induction held secondary to high patient census. BP's elevated to 150's/100's. Pre-eclampsia labs only signficicant for mildly elevated AST 46. Soft call for HELLP made. BP' s improved spontaneously but still occasional elevations. The patient was observed due to patient census, but spontaneously went into labor. Ronal received an epidural for pain control from Dr. Bree Buitrago. of a viable male named "Whitney." Apgars 9/9, weight 5 lbs, 15.9 oz. Placenta mildly adherent but did deliver spontaneously, intact with 3 VC. Placenta to be sent to pathology given late care, H/O ilicit drug use in early , recent elevated BP's and small weight. Superficial 1st degree laceration on right medial labia majora did not require repair. EBL 300 mL, no complications. Will repeat pre-eclampsia labs. Routine care.)
[2016-11-18] MEDS ORDERED: WITCH HAZEL/GLYCERIN 1 EACH MED..PAD TOP PRN (08:39)
[2016-11-18] MEDS ORDERED: MAGNESIUM HYDROXIDE 2,400 MG/30 ML UDC PO PRN (08:39)
[2016-11-18] MEDS ORDERED: HYDROCORTISONE 1% CREAM 28 GM TUBE PR PRN (08:39)
[2016-11-18] MEDS ORDERED: HYDROCORTISONE/PRAMOXINE 10 GM PR PRN (08:39)
[2016-11-18] MEDS ORDERED: LACTATED RINGERS 1,000 ML IV SCH (09:00)
[2016-11-18 10:46] LABS: BASOPHILS # (AUTO) 0.1 10^3/uL (0.0-0.1); BASOPHILS % (AUTO) 0.4 %; HCT - HEMATOCRIT 30.7 % (37.0-47.0); HGB - HEMOGLOBIN 9.8 g/dL (12.0-16.0); LYMPHOCYTES # (AUTO) 2.2 10^3/uL (1.5-3.5); LYMPHOCYTES % (AUTO) 9.2 %; MEAN CORPUSCULAR HEMOGLOBIN 25.3 pg (27.0-31.0); MEAN CORPUSCULAR HGB CONC 31.8 g/dL (32.0-36.0); MEAN CORPUSCULAR VOLUME 79.4 fL (81.0-99.0); MEAN PLATELET VOLUME 7.7 fL (7.9-10.8); MONOCYTES # (AUTO) 1.4 10^3/uL (0.0-1.0); MONOCYTES % (AUTO) 5.9 %; NEUTROPHILS # (AUTO) 20.1 10^3/uL (1.5-6.6); NEUTROPHILS % (AUTO) 84.5 %; NUCLEATED RED BLOOD CELLS AUTO 0.1 /100WBC; RED BLOOD COUNT 3.86 10^6/uL (4.20-5.40); RED CELL DISTRIBUTION WIDTH 23.5 % (12.0-15.0); UNCORRECTED WHITE BLOOD COUNT 23.8 x10^3/uL; WHITE BLOOD COUNT 23.8 x10^3/uL (4.8-10.8)
[2016-11-18 10:51] LABS: CREATININE 0.6 mg/dL (0.4-1.0); URIC ACID 7.5 mg/dL (2.6-7.2)
--- NOTE | 2016-11-18 11:15 | PROVIDER PROGRESS NOTE ---
Subjective - Prog Note Date Prog Note Date: 11/18/16 Prog Note Time: 11:13 - Subjective Pt reports feeling: Improved Subjective: Patient sitting in bed, ready to eat breakfast. Baby getting IV glucose. Doing well and without complaints. SO Kyle on couch, holding baby. Objective - Vital Signs/Intake & Output Reviewed Vital Signs: Yes Vital Signs: Vital Signs x48h Pulse Resp BP Pulse Ox 11/18/16 08:45 92 142/91 H 99 11/18/16 08:30 108 H 145/92 H 99 11/18/16 08:15 100 151/92 H 11/18/16 08:00 100 19 148/97 H 99 Intake & Output: Intake & Output 11/15/16 11/16/16 11/17/16 11/18/16 23:59 23:59 23:59 23:59 Intake Total 1999 300 Output Total 400 Balance 1998 - Objective General Appearance: positive: No acute distress Abdomen: positive: Non-tender (Firm fundus) - Lab Results Fish Bones: 11/18/16 10:30 11/18/16 10:30 Other Labs: Lab Results x24hrs 11/18/16 11/18/16 11/18/16 Range/Units 10:30 10:30 10:30 WBC 23.8 H (4.8-10.8) x10^3/uL RBC 3.86 L (4.20-5.40) 10^6/uL Hgb 9.8 L (12.0-16.0) g/dL Hct 30.7 L (37.0-47.0) % MCV 79.4 L (81.0-99.0) fL MCH 25.3 L (27.0-31.0) pg MCHC 31.8 L (32.0-36.0) g/dL RDW 23.5 H (12.0-15.0) % Plt Count 347 (130-450) 10^3/uL MPV 7.7 L (7.9-10.8) fL Neut # 20.1 H (1.5-6.6) 10^3/uL Lymph # 2.2 (1.5-3.5) 10^3/uL [place] # 1.4 H (0.0-1.0) 10^3/uL Eos # 0.0 (0.0-0.7) 10^3/uL Baso # 0.1 (0.0-0.1) 10^3/uL Absolute Nucleated RBC 0.03 x10^3/uL Nucleated RBCs 0.1 /100WBC Manual Slide Review Indicated RBC Morph Micro Appear 3+ ANISOCYTOSIS (NORMAL) Creatinine 0.6 (0.4-1.0) mg/dL Estimated GFR (MDRD) 112 (>89) Uric Acid 7.5 H (2.6-7.2) mg/dL AST 43 H (10-42) IU/L Lactate Dehydrogenase 223 (91-225) IU/L Urine Color Urine Clarity Urine pH Ur Specific [place] Urine Protein Urine Glucose (UA) Urine Ketones Urine Occult Blood Urine Nitrite Urine Bilirubin Urine Urobilinogen Ur Leukocyte Esterase Urine RBC Urine WBC Urine WBC Clumps Ur Epithelial Cells Ur Squamous Epith Cells Urine Crystals Amorphous Sediment Urine Bacteria Urine Casts Urine Starch Urine Mucus Urine Trichomonas Urine Yeast Urine Sperm Ur Oval Fat Bodies Urine Culture Comments Urine Creatinine mg/dL Ur Total Protein Timed mg/dL Protein/Creatinin Ratio Urine Opiates Screen Ur Oxycodone Screen Urine Methadone Screen Ur Propoxyphene Screen Ur Barbiturates Screen Ur Tricyclics Screen Ur Phencyclidine Scrn Ur Amphetamine Screen U Methamphetamines Scrn U Benzodiazepines Scrn Urine Cocaine Screen U Cannabinoids Screen 11/17/16 11/17/16 11/16/16 Range/Units 08:35 08:35 09:06 WBC (4.8-10.8) x10^3/uL RBC (4.20-5.40) 10^6/uL Hgb (12.0-16.0) g/dL Hct (37.0-47.0) % MCV (81.0-99.0) fL MCH (27.0-31.0) pg MCHC (32.0-36.0) g/dL RDW (12.0-15.0) % Plt Count (130-450) 10^3/uL MPV (7.9-10.8) fL Neut # (1.5-6.6) 10^3/uL Lymph # (1.5-3.5) 10^3/uL [place] # (0.0-1.0) 10^3/uL Eos # (0.0-0.7) 10^3/uL Baso # (0.0-0.1) 10^3/uL Absolute Nucleated RBC x10^3/uL Nucleated RBCs /100WBC Manual Slide Review RBC Morph Micro Appear (NORMAL) Creatinine (0.4-1.0) mg/dL Estimated GFR (MDRD) (>89) Uric Acid (2.6-7.2) mg/dL AST (10-42) IU/L Lactate Dehydrogenase (91-225) IU/L Urine Color YELLOW Cancelled Urine Clarity CLEAR Cancelled Urine pH 6.0 Cancelled Ur Specific [place] <=1.005 Cancelled Urine Protein NEGATIVE Cancelled Urine Glucose (UA) NEGATIVE Cancelled Urine Ketones NEGATIVE Cancelled Urine Occult Blood NEGATIVE Cancelled Urine Nitrite NEGATIVE Cancelled Urine Bilirubin NEGATIVE Cancelled Urine Urobilinogen 0.2 (NORMAL) Cancelled Ur Leukocyte Esterase NEGATIVE Cancelled Urine RBC 0-5 Cancelled Urine WBC 0-3 Cancelled Urine WBC Clumps Cancelled Ur Epithelial Cells Cancelled Ur Squamous Epith Cells NONE SEEN Cancelled Urine Crystals Cancelled Amorphous Sediment Cancelled Urine Bacteria None Seen Cancelled Urine Casts Cancelled Urine Starch Cancelled Urine Mucus Few Strands Cancelled Urine Trichomonas Cancelled Urine Yeast Cancelled Urine Sperm Cancelled Ur Oval Fat Bodies Cancelled Urine Culture Comments NOT INDICATED Cancelled Urine Creatinine 31.3 mg/dL Ur Total Protein Timed < 6 mg/dL Protein/Creatinin Ratio Not Reportable Urine Opiates Screen NEGATIVE Cancelled Ur Oxycodone Screen NEGATIVE Cancelled Urine Methadone Screen NEGATIVE Cancelled Ur Propoxyphene Screen NEGATIVE Cancelled Ur Barbiturates Screen NEGATIVE Cancelled Ur Tricyclics Screen NEGATIVE Cancelled Ur Phencyclidine Scrn NEGATIVE Cancelled Ur Amphetamine Screen NEGATIVE Cancelled U Methamphetamines Scrn NEGATIVE Cancelled U Benzodiazepines Scrn NEGATIVE Cancelled Urine Cocaine Screen NEGATIVE Cancelled U Cannabinoids Screen NEGATIVE Cancelled Assessment/Plan - Problem List (1) HELLP syndrome, delivered, current hospitalization Impression: 35 yo S/p this AM Recovering well Improved AST this AM Mildly elevated BP's Will continue to watch patient carefully. Will give MgSO4 x 12 hours for seizure prophlyaxis. Routine care Likely home on PPD #2, 11/20/2016 Rxs for Tylenol, Motrin, and colace eFaxed via [email or web address] to [facility] [facility]. Handwritten Rx for vicodin #20 tabs also written (have not given yet) for home meds Labs, EKG, Meds, Allergy - Lab Results Fish Bones: 11/18/16 10:30 11/18/16 10:30 Other Lab Results: Lab Results x24hrs 11/18/16 11/18/16 11/18/16 Range/Units 10:30 10:30 10:30 WBC 23.8 H (4.8-10.8) x10^3/uL RBC 3.86 L (4.20-5.40) 10^6/uL Hgb 9.8 L (12.0-16.0) g/dL Hct 30.7 L (37.0-47.0) % MCV 79.4 L (81.0-99.0) fL MCH 25.3 L (27.0-31.0) pg MCHC 31.8 L (32.0-36.0) g/dL RDW 23.5 H (12.0-15.0) % Plt Count 347 (130-450) 10^3/uL MPV 7.7 L (7.9-10.8) fL Neut # 20.1 H (1.5-6.6) 10^3/uL Lymph # 2.2 (1.5-3.5) 10^3/uL [place] # 1.4 H (0.0-1.0) 10^3/uL Eos # 0.0 (0.0-0.7) 10^3/uL Baso # 0.1 (0.0-0.1) 10^3/uL Absolute Nucleated RBC 0.03 x10^3/uL Nucleated RBCs 0.1 /100WBC Manual Slide Review Indicated RBC Morph Micro Appear 3+ ANISOCYTOSIS (NORMAL) Creatinine 0.6 (0.4-1.0) mg/dL Estimated GFR (MDRD) 112 (>89) Uric Acid 7.5 H (2.6-7.2) mg/dL AST 43 H (10-42) IU/L Lactate Dehydrogenase 223 (91-225) IU/L Urine Color Urine Clarity (CLEAR) Urine pH (5.0-7.5) PH Ur Specific [place] (1.002-1.030) Urine Protein (NEGATIVE) mg/dL Urine Glucose (UA) (NEGATIVE) mg/dL Urine Ketones (NEGATIVE) mg/dL Urine Occult Blood (NEGATIVE) Urine Nitrite (NEGATIVE) Urine Bilirubin (NEGATIVE) Urine Urobilinogen (NORMAL) E.U./dL Ur Leukocyte Esterase (NEGATIVE) Urine RBC (0-5) /HPF Urine WBC (0-5) /HPF Ur Squamous Epith Cells (<= Few) Urine Bacteria (None Seen) /HPF Urine Mucus Urine Culture Comments Urine Creatinine mg/dL Ur Total Protein Timed mg/dL Protein/Creatinin Ratio Urine Opiates Screen (NEGATIVE) Ur Oxycodone Screen (NEGATIVE) Urine Methadone Screen (NEGATIVE) Ur Propoxyphene Screen (NEGATIVE) Ur Barbiturates Screen (NEGATIVE) Ur Tricyclics Screen (NEGATIVE) Ur Phencyclidine Scrn (NEGATIVE) Ur Amphetamine Screen (NEGATIVE) U Methamphetamines Scrn (NEGATIVE) U Benzodiazepines Scrn (NEGATIVE) Urine Cocaine Screen (NEGATIVE) U Cannabinoids Screen (NEGATIVE) 11/17/16 11/17/16 Range/Units 08:35 08:35 WBC (4.8-10.8) x10^3/uL RBC (4.20-5.40) 10^6/uL Hgb (12.0-16.0) g/dL Hct (37.0-47.0) % MCV (81.0-99.0) fL MCH (27.0-31.0) pg MCHC (32.0-36.0) g/dL RDW (12.0-15.0) % Plt Count (130-450) 10^3/uL MPV (7.9-10.8) fL Neut # (1.5-6.6) 10^3/uL Lymph # (1.5-3.5) 10^3/uL [place] # (0.0-1.0) 10^3/uL Eos # (0.0-0.7) 10^3/uL Baso # (0.0-0.1) 10^3/uL Absolute Nucleated RBC x10^3/uL Nucleated RBCs /100WBC Manual Slide Review RBC Morph Micro Appear (NORMAL) Creatinine (0.4-1.0) mg/dL Estimated GFR (MDRD) (>89) Uric Acid (2.6-7.2) mg/dL AST (10-42) IU/L Lactate Dehydrogenase (91-225) IU/L Urine Color YELLOW Urine Clarity CLEAR (CLEAR) Urine pH 6.0 (5.0-7.5) PH Ur Specific [place] <=1.005 (1.002-1.030) Urine Protein NEGATIVE (NEGATIVE) mg/dL Urine Glucose (UA) NEGATIVE (NEGATIVE) mg/dL Urine Ketones NEGATIVE (NEGATIVE) mg/dL Urine Occult Blood NEGATIVE (NEGATIVE) Urine Nitrite NEGATIVE (NEGATIVE) Urine Bilirubin NEGATIVE (NEGATIVE) Urine Urobilinogen 0.2 (NORMAL) (NORMAL) E.U./dL Ur Leukocyte Esterase NEGATIVE (NEGATIVE) Urine RBC 0-5 (0-5) /HPF Urine WBC 0-3 (0-5) /HPF Ur Squamous Epith Cells NONE SEEN (<= Few) Urine Bacteria None Seen (None Seen) /HPF Urine Mucus Few Strands Urine Culture Comments NOT INDICATED Urine Creatinine 31.3 mg/dL Ur Total Protein Timed < 6 mg/dL Protein/Creatinin Ratio Not Reportable Urine Opiates Screen NEGATIVE (NEGATIVE) Ur Oxycodone Screen NEGATIVE (NEGATIVE) Urine Methadone Screen NEGATIVE (NEGATIVE) Ur Propoxyphene Screen NEGATIVE (NEGATIVE) Ur Barbiturates Screen NEGATIVE (NEGATIVE) Ur Tricyclics Screen NEGATIVE (NEGATIVE) Ur Phencyclidine Scrn NEGATIVE (NEGATIVE) Ur Amphetamine Screen NEGATIVE (NEGATIVE) U Methamphetamines Scrn NEGATIVE (NEGATIVE) U Benzodiazepines Scrn NEGATIVE (NEGATIVE) Urine Cocaine Screen NEGATIVE (NEGATIVE) U Cannabinoids Screen NEGATIVE (NEGATIVE) - Medications Medications: Ambulatory Orders Medication Instructions Recorded Confirmed Ascorbic Acid [Vitamin C] 1,000 mg PO DAILY 10/16/16 10/16/16 Ferrous Sulfate 325 mg PO DAILY 10/16/16 10/16/16 [id number]/[id number]/Fish Oil 2 each PO DAILY 10/16/16 10/16/16 [ Gummies] - Allergy Allergy: Allergies Allergy/AdvReac Type Severity Reaction Status Date / Time No Known Drug Allergies Allergy Verified 10/16/16 15:07 Ascorbic Acid [Vitamin C] 1,000 mg PO DAILY 10/16/16 Ferrous Sulfate 325 mg PO DAILY 10/16/16 [id number]/Dha/Fish Oil [ Gummies] 2 each PO DAILY 10/16/16
[2016-11-18] MEDS ORDERED: MAGNESIUM SULFATE 2 GM in SODIUM CHLORIDE 0.9% 50 ML IV ONE (11:20)
[2016-11-18] MEDS ORDERED: MAGNESIUM SULFATE 4 GM in SODIUM CHLORIDE 0.9% 50 ML IV ONE (11:21)
[2016-11-18] MEDS ORDERED: SODIUM CHLORIDE 0.9% IV ONE (11:36)
[2016-11-18] MEDS ORDERED: MAGNESIUM SULFATE IV ONE (11:36)
[2016-11-18] MEDS: CELECOXIB 100 MG CAPSULE PO SCH ×2 (13:05→19:58)
[2016-11-18] MEDS: DOCUSATE SODIUM 100 MG CAPSULE PO SCH ×2 (13:05→19:58)
[2016-11-18] MEDS: SIMETHICONE CHEW 80 MG TABLET PO SCH ×2 (13:05→19:59)
[2016-11-18 15:24] LABS: BILIRUBIN,URINE NEGATIVE (NEGATIVE); PH,URINE 5.5 PH (5.0-7.5)
[2016-11-18 15:40] LABS: UR CULTURE IF IND NOT INDICATED; WBC,URINE 0-3 /HPF (0-5)
[2016-11-18] MEDS: HYDROcod/ACETAM 5/325 MG TABLET PO PRN (19:58)
[2016-11-18] MEDS: CALCIUM CARBONATE CHEW 500 MG TABLET PO SCH (19:59)
[2016-11-18] MEDS ORDERED: FERRIC GLUCONATE 125 MG in SODIUM CHLORIDE 0.9% 100ML 100 ML IV SCH (21:29)
[2016-11-19] MEDS: ACETAMINOPHEN 325 MG TABLET PO SCH ×3 (04:34→20:48)
[2016-11-19] MEDS: HYDROcod/ACETAM 5/325 MG TABLET PO PRN ×2 (05:30)
[2016-11-19 05:52] LABS: CREATININE 0.7 mg/dL (0.4-1.0)
[2016-11-19 05:53] LABS: BASOPHILS # (AUTO) 0.1 10^3/uL (0.0-0.1); BASOPHILS % (AUTO) 0.7 %; EOSINOPHILS # (AUTO) 0.2 10^3/uL (0.0-0.7); EOSINOPHILS % (AUTO) 1.4 %; HCT - HEMATOCRIT 27.2 % (37.0-47.0); HGB - HEMOGLOBIN 8.8 g/dL (12.0-16.0); LYMPHOCYTES # (AUTO) 2.9 10^3/uL (1.5-3.5); LYMPHOCYTES % (AUTO) 24.2 %; MEAN CORPUSCULAR HEMOGLOBIN 26.1 pg (27.0-31.0); MEAN CORPUSCULAR HGB CONC 32.1 g/dL (32.0-36.0); MEAN CORPUSCULAR VOLUME 81.3 fL (81.0-99.0); MEAN PLATELET VOLUME 7.7 fL (7.9-10.8); MONOCYTES # (AUTO) 0.9 10^3/uL (0.0-1.0); MONOCYTES % (AUTO) 7.8 %; NEUTROPHILS # (AUTO) 7.9 10^3/uL (1.5-6.6); NEUTROPHILS % (AUTO) 65.9 %; NUCLEATED RED BLOOD CELLS AUTO 0.2 /100WBC; RED BLOOD COUNT 3.35 10^6/uL (4.20-5.40); RED CELL DISTRIBUTION WIDTH 23.8 % (12.0-15.0); UNCORRECTED WHITE BLOOD COUNT 11.9 x10^3/uL; WHITE BLOOD COUNT 11.9 x10^3/uL (4.8-10.8)
[2016-11-19 06:39] LABS: PLATELET ESTIMATE, MANUAL NORMAL (130-450,000) (NORMAL)
[2016-11-19] MEDS ORDERED: FERRIC GLUCONATE 125 MG in SODIUM CHLORIDE 0.9% 100ML 100 ML IV SCH (07:30)
[2016-11-19] MEDS: CALCIUM CARBONATE CHEW 500 MG TABLET PO SCH ×2 (08:45→20:48)
[2016-11-19] MEDS ORDERED: SODIUM CHLORIDE FLUSH 0.9% 10 ML SYRINGE IVP ONE ×2 (08:56→10:22)
--- NOTE | 2016-11-19 08:59 | PROVIDER PROGRESS NOTE ---
Subjective - Prog Note Date Prog Note Date: 11/19/16 Prog Note Time: 08:57 - Subjective Pt reports feeling: Improved Subjective: Patient sitting on the bedside, finishing breakfast. On the phone with DARÍO Wright. Kyle at [facility] with baby Whitney. Whitney had an IV for glucose yesterday. Last PM had difficulty with breathing and then transferred to [place]. Humzachey reports that Whitney is doing better. Patient got some sleep but is still tired. Vicodin and make her sleepy or increased energy depending on her activity. S/p MgSO4 x 12 hours. Now getting iron transfusion. Objective - Vital Signs/Intake & Output Reviewed Vital Signs: Yes Vital Signs: Vital Signs x48h Temp Pulse Resp BP Pulse Ox 11/19/16 05:15 75 18 121/86 H 100 11/19/16 02:00 98.4 F 83 20 110/66 99 Intake & Output: Intake & Output 11/16/16 11/17/16 11/18/16 11/19/16 23:59 23:59 23:59 23:59 Intake Total 1999 Output Total 9828 650 Balance 1998 -1158 -452 - Objective General Appearance: positive: No acute distress Eyes Bilateral: positive: Normal inspection Abdomen: positive: Non-tender (Mildly distended abdomen. Firm fundus) Neurologic/Psychiatric: positive: Oriented x3, Mood/affect nml - Lab Results Fish Bones: 11/19/16 05:29 11/19/16 05:29 Other Labs: Lab Results x24hrs 11/19/16 11/19/16 11/19/16 Range/Units 05:29 05:29 05:29 WBC 11.9 H (4.8-10.8) x10^3/uL RBC 3.35 L (4.20-5.40) 10^6/uL Hgb 8.8 L (12.0-16.0) g/dL Hct 27.2 L (37.0-47.0) % MCV 81.3 (81.0-99.0) fL MCH 26.1 L (27.0-31.0) pg MCHC 32.1 (32.0-36.0) g/dL RDW 23.8 H (12.0-15.0) % Plt Count 299 (130-450) 10^3/uL MPV 7.7 L (7.9-10.8) fL Neut # 7.9 H (1.5-6.6) 10^3/uL Lymph # 2.9 (1.5-3.5) 10^3/uL Dubois # 0.9 (0.0-1.0) 10^3/uL Eos # 0.2 (0.0-0.7) 10^3/uL Baso # 0.1 (0.0-0.1) 10^3/uL Absolute Nucleated RBC 0.02 x10^3/uL Nucleated RBCs 0.2 /100WBC Manual Slide Review Platelet Estimate NORMAL (130-450,000) (NORMAL) RBC Morph Micro Appear 1+ OVALOCYTES (NORMAL) Creatinine 0.7 (0.4-1.0) mg/dL Estimated GFR (MDRD) 94 (>89) Uric Acid (2.6-7.2) mg/dL AST 46 H (10-42) IU/L Lactate Dehydrogenase 246 H (91-225) IU/L Urine Color Urine Clarity (CLEAR) Urine pH (5.0-7.5) PH Ur Specific [place] (1.002-1.030) Urine Protein (NEGATIVE) mg/dL Urine Glucose (UA) (NEGATIVE) mg/dL Urine Ketones (NEGATIVE) mg/dL Urine Occult Blood (NEGATIVE) Urine Nitrite (NEGATIVE) Urine Bilirubin (NEGATIVE) Urine Urobilinogen (NORMAL) E.U./dL Ur Leukocyte Esterase (NEGATIVE) Urine RBC (0-5) /HPF Urine WBC (0-5) /HPF Ur Squamous Epith Cells (<= Few) Urine Bacteria (None Seen) /HPF Urine Culture Comments Urine Creatinine mg/dL Ur Total Protein Timed mg/dL Protein/Creatinin Ratio (<=0.2) 11/18/16 11/18/16 11/18/16 Range/Units 15:34 14:57 10:30 WBC (4.8-10.8) x10^3/uL RBC (4.20-5.40) 10^6/uL Hgb (12.0-16.0) g/dL Hct (37.0-47.0) % MCV (81.0-99.0) fL MCH (27.0-31.0) pg MCHC (32.0-36.0) g/dL RDW (12.0-15.0) % Plt Count (130-450) 10^3/uL MPV (7.9-10.8) fL Neut # (1.5-6.6) 10^3/uL Lymph # (1.5-3.5) 10^3/uL Dubois # (0.0-1.0) 10^3/uL Eos # (0.0-0.7) 10^3/uL Baso # (0.0-0.1) 10^3/uL Absolute Nucleated RBC x10^3/uL Nucleated RBCs /100WBC Manual Slide Review Platelet Estimate (NORMAL) RBC Morph Micro Appear (NORMAL) Creatinine (0.4-1.0) mg/dL Estimated GFR (MDRD) (>89) Uric Acid (2.6-7.2) mg/dL AST (10-42) IU/L Lactate Dehydrogenase 223 (91-225) IU/L Urine Color YELLOW Urine Clarity HAZY (CLEAR) Urine pH 5.5 (5.0-7.5) PH Ur Specific [place] 1.020 (1.002-1.030) Urine Protein NEGATIVE (NEGATIVE) mg/dL Urine Glucose (UA) NEGATIVE (NEGATIVE) mg/dL Urine Ketones NEGATIVE (NEGATIVE) mg/dL Urine Occult Blood LARGE H (NEGATIVE) Urine Nitrite NEGATIVE (NEGATIVE) Urine Bilirubin NEGATIVE (NEGATIVE) Urine Urobilinogen 0.2 (NORMAL) (NORMAL) E.U./dL Ur Leukocyte Esterase NEGATIVE (NEGATIVE) Urine RBC TNTC H (0-5) /HPF Urine WBC 0-3 (0-5) /HPF Ur Squamous Epith Cells RARE Squamous (<= Few) Urine Bacteria Few (None Seen) /HPF Urine Culture Comments NOT INDICATED Urine Creatinine 45.4 mg/dL Ur Total Protein Timed 10 mg/dL Protein/Creatinin Ratio 0.2 (<=0.2) 11/18/16 11/18/16 Range/Units 10:30 10:30 WBC 23.8 H (4.8-10.8) x10^3/uL RBC 3.86 L (4.20-5.40) 10^6/uL Hgb 9.8 L (12.0-16.0) g/dL Hct 30.7 L (37.0-47.0) % MCV 79.4 L (81.0-99.0) fL MCH 25.3 L (27.0-31.0) pg MCHC 31.8 L (32.0-36.0) g/dL RDW 23.5 H (12.0-15.0) % Plt Count 347 (130-450) 10^3/uL MPV 7.7 L (7.9-10.8) fL Neut # 20.1 H (1.5-6.6) 10^3/uL Lymph # 2.2 (1.5-3.5) 10^3/uL Dubois # 1.4 H (0.0-1.0) 10^3/uL Eos # 0.0 (0.0-0.7) 10^3/uL Baso # 0.1 (0.0-0.1) 10^3/uL Absolute Nucleated RBC 0.03 x10^3/uL Nucleated RBCs 0.1 /100WBC Manual Slide Review Indicated Platelet Estimate (NORMAL) RBC Morph Micro Appear 3+ ANISOCYTOSIS (NORMAL) Creatinine 0.6 (0.4-1.0) mg/dL Estimated GFR (MDRD) 112 (>89) Uric Acid 7.5 H (2.6-7.2) mg/dL AST 43 H (10-42) IU/L Lactate Dehydrogenase (91-225) IU/L Urine Color Urine Clarity (CLEAR) Urine pH (5.0-7.5) PH Ur Specific [place] (1.002-1.030) Urine Protein (NEGATIVE) mg/dL Urine Glucose (UA) (NEGATIVE) mg/dL Urine Ketones (NEGATIVE) mg/dL Urine Occult Blood (NEGATIVE) Urine Nitrite (NEGATIVE) Urine Bilirubin (NEGATIVE) Urine Urobilinogen (NORMAL) E.U./dL Ur Leukocyte Esterase (NEGATIVE) Urine RBC (0-5) /HPF Urine WBC (0-5) /HPF Ur Squamous Epith Cells (<= Few) Urine Bacteria (None Seen) /HPF Urine Culture Comments Urine Creatinine mg/dL Ur Total Protein Timed mg/dL Protein/Creatinin Ratio (<=0.2) Assessment/Plan - Problem List (1) HELLP syndrome, delivered, current hospitalization Impression: 35 yo S/p 11/18/2016, PPD #1 Normal recovery Iron deficiency anemia Resolving HELLP Remove saline lock after iron transfusion completed Anticipated discharge to home tomorrrow
[2016-11-19] MEDS: DOCUSATE SODIUM 100 MG CAPSULE PO SCH ×2 (09:08→20:48)
[2016-11-19] MEDS: CELECOXIB 100 MG CAPSULE PO SCH ×2 (09:09→20:48)
[2016-11-19] MEDS: SIMETHICONE CHEW 80 MG TABLET PO SCH ×3 (09:09→20:48)
[2016-11-19] MEDS: ZOLPIDEM 5 MG TABLET PO PRN ×2 (10:22→20:47)
[2016-11-19 20:32] LABS: BILIRUBIN,URINE NEGATIVE (NEGATIVE)
[2016-11-19 20:33] LABS: UA w/ MICROSCOPIC CHARGE YES
[2016-11-19 20:41] LABS: UR CULTURE IF IND NOT INDICATED; WBC,URINE 0-3 /HPF (0-5)
[2016-11-19] MEDS: SODIUM CHLORIDE FLUSH 0.9% 10 ML SYRINGE IVP PRN (20:49)
--- NOTE | 2016-11-20 08:49 | PROVIDER PROGRESS NOTE ---
Subjective - Prog Note Date Prog Note Date: 11/20/16 Prog Note Time: 08:48 - Subjective Subjective: Patient asleep in bed. No one else in the room. SO Kyle was with the baby yesterday at [facility] Objective - Vital Signs/Intake & Output Vital Signs: Vital Signs x48h Temp Pulse Resp BP Pulse Ox 11/20/16 06:30 98.1 F 77 18 148/90 H 100 Intake & Output: Intake & Output 11/17/16 11/18/16 11/19/16 11/20/16 23:59 23:59 23:59 23:59 Intake Total 1999 442 678 200 Output Total 1600 1800 Balance [id number] -0432 200 - Lab Results Fish Bones: 11/19/16 05:29 11/19/16 05:29 Other Labs: Lab Results x24hrs 11/19/16 11/19/16 11/17/16 Range/Units 17:50 17:50 09:06 Urine Color YELLOW Urine Clarity CLEAR (CLEAR) Urine pH 6.0 (5.0-7.5) PH Ur Specific [place] 1.015 (1.002-1.030) Urine Protein NEGATIVE (NEGATIVE) mg/dL Urine Glucose (UA) NEGATIVE (NEGATIVE) mg/dL Urine Ketones NEGATIVE (NEGATIVE) mg/dL Urine Occult Blood MODERATE H (NEGATIVE) Urine Nitrite NEGATIVE (NEGATIVE) Urine Bilirubin NEGATIVE (NEGATIVE) Urine Urobilinogen 0.2 (NORMAL) (NORMAL) E.U./dL Ur Leukocyte Esterase NEGATIVE (NEGATIVE) Urine RBC 11-25 H (0-5) /HPF Urine WBC 0-3 (0-5) /HPF Ur Squamous Epith Cells FEW Squamous (<= Few) Urine Bacteria None Seen (None Seen) /HPF Ur Microscopic Review INDICATED Urine Culture Comments NOT INDICATED Urine Creatinine 53.3 mg/dL Ur Total Protein Timed 8 mg/dL Protein/Creatinin Ratio 0.2 (<=0.2) T.pallidum IgG (EIA) NEGATIVE (()) Assessment/Plan - Problem List (1) HELLP syndrome, delivered, current hospitalization Impression: Will return during lunch hour Likely to D/C home
[2016-11-20] MEDS ORDERED: LABETALOL 100 MG TABLET PO SCH (09:00)
[2016-11-20 09:30] LABS: BASOPHILS # (AUTO) 0.1 10^3/uL (0.0-0.1); BASOPHILS % (AUTO) 0.9 %; EOSINOPHILS # (AUTO) 0.1 10^3/uL (0.0-0.7); EOSINOPHILS % (AUTO) 1.2 %; HCT - HEMATOCRIT 29.4 % (37.0-47.0); HGB - HEMOGLOBIN 9.3 g/dL (12.0-16.0); LYMPHOCYTES # (AUTO) 2.2 10^3/uL (1.5-3.5); LYMPHOCYTES % (AUTO) 17.6 %; MEAN CORPUSCULAR HEMOGLOBIN 25.6 pg (27.0-31.0); MEAN CORPUSCULAR HGB CONC 31.6 g/dL (32.0-36.0); MEAN CORPUSCULAR VOLUME 80.9 fL (81.0-99.0); MEAN PLATELET VOLUME 7.9 fL (7.9-10.8); MONOCYTES # (AUTO) 0.7 10^3/uL (0.0-1.0); MONOCYTES % (AUTO) 5.8 %; NEUTROPHILS # (AUTO) 9.3 10^3/uL (1.5-6.6); NEUTROPHILS % (AUTO) 74.5 %; NUCLEATED RED BLOOD CELLS AUTO 0.3 /100WBC; RED BLOOD COUNT 3.63 10^6/uL (4.20-5.40); RED CELL DISTRIBUTION WIDTH 24.1 % (12.0-15.0); UNCORRECTED WHITE BLOOD COUNT 12.5 x10^3/uL; WHITE BLOOD COUNT 12.5 x10^3/uL (4.8-10.8)
[2016-11-20 09:38] LABS: CREATININE 0.5 mg/dL (0.4-1.0)
[2016-11-20] MEDS: ACETAMINOPHEN 325 MG TABLET PO SCH (09:53)
[2016-11-20] MEDS: CALCIUM CARBONATE CHEW 500 MG TABLET PO SCH (09:53)
[2016-11-20] MEDS: CELECOXIB 100 MG CAPSULE PO SCH (09:54)
[2016-11-20] MEDS: DOCUSATE SODIUM 100 MG CAPSULE PO SCH (09:54)
[2016-11-20] MEDS: SIMETHICONE CHEW 80 MG TABLET PO SCH (09:54)
[2016-11-20 09:59] LABS: PLATELET ESTIMATE, MANUAL NORMAL (130-450,000) (NORMAL); PLATELET MORPHOLOGY 1+ GIANT PLATELETS (NORMAL)
[2016-11-20 12:26] LABS: BILIRUBIN,URINE NEGATIVE (NEGATIVE); PH,URINE 6.5 PH (5.0-7.5)
--- NOTE | 2016-11-20 12:41 | PROVIDER PROGRESS NOTE ---
Subjective - Prog Note Date Prog Note Date: 11/20/16 Prog Note Time: 12:37 - Subjective Pt reports feeling: Improved Subjective: Patient feeling better. Got sleep with Ambien. Normal lochia. Pain controlled with po meds. Urinating without difficulty. Denies headache, visual changes, RUQ pain. Tearful, missing baby. Rev off respiratory help, may get off IV. Objective - Vital Signs/Intake & Output Reviewed Vital Signs: Yes Vital Signs: Vital Signs x48h Temp Pulse Resp BP Pulse Ox 11/20/16 12:10 98.4 F 91 16 120/77 99 11/20/16 06:30 98.1 F 77 18 148/90 H 100 Intake & Output: Intake & Output 11/17/16 11/18/16 11/19/16 11/20/16 23:59 23:59 23:59 23:59 Intake Total 1999 678 480 Output Total 1600 1800 1 Balance [id number] -2 479 - Objective General Appearance: positive: No acute distress Eyes Bilateral: positive: Normal inspection Abdomen: positive: Non-tender Neurologic/Psychiatric: positive: Oriented x3 - Lab Results Fish Bones: 11/20/16 09:22 11/20/16 09:22 Other Labs: Lab Results x24hrs 11/20/16 11/20/16 11/20/16 Range/Units 12:00 09:22 09:22 WBC (4.8-10.8) x10^3/uL RBC (4.20-5.40) 10^6/uL Hgb (12.0-16.0) g/dL Hct (37.0-47.0) % MCV (81.0-99.0) fL MCH (27.0-31.0) pg MCHC (32.0-36.0) g/dL RDW (12.0-15.0) % Plt Count (130-450) 10^3/uL MPV (7.9-10.8) fL Neut # (1.5-6.6) 10^3/uL Lymph # (1.5-3.5) 10^3/uL [place] # (0.0-1.0) 10^3/uL Eos # (0.0-0.7) 10^3/uL Baso # (0.0-0.1) 10^3/uL Absolute Nucleated RBC x10^3/uL Nucleated RBCs /100WBC Manual Slide Review Platelet Estimate (NORMAL) Platelet Morphology (NORMAL) RBC Morph Micro Appear (NORMAL) Creatinine 0.5 (0.4-1.0) mg/dL Estimated GFR (MDRD) 139 (>89) AST 48 H (10-42) IU/L Lactate Dehydrogenase 192 (91-225) IU/L Urine Color YELLOW Urine Clarity CLEAR (CLEAR) Urine pH 6.5 (5.0-7.5) PH Ur Specific [place] 1.015 (1.002-1.030) Urine Protein NEGATIVE (NEGATIVE) mg/dL Urine Glucose (UA) NEGATIVE (NEGATIVE) mg/dL Urine Ketones NEGATIVE (NEGATIVE) mg/dL Urine Occult Blood MODERATE H (NEGATIVE) Urine Nitrite NEGATIVE (NEGATIVE) Urine Bilirubin NEGATIVE (NEGATIVE) Urine Urobilinogen 0.2 (NORMAL) (NORMAL) E.U./dL Ur Leukocyte Esterase NEGATIVE (NEGATIVE) Urine RBC (0-5) /HPF Urine WBC (0-5) /HPF Ur Squamous Epith Cells (<= Few) Urine Bacteria (None Seen) /HPF Ur Microscopic Review Urine Culture Comments Urine Creatinine mg/dL Ur Total Protein Timed mg/dL Protein/Creatinin Ratio (<=0.2) T.pallidum IgG (EIA) (()) 11/20/16 11/19/16 11/19/16 Range/Units 09:22 17:50 17:50 WBC 12.5 H (4.8-10.8) x10^3/uL RBC 3.63 L (4.20-5.40) 10^6/uL Hgb 9.3 L (12.0-16.0) g/dL Hct 29.4 L (37.0-47.0) % MCV 80.9 L (81.0-99.0) fL MCH 25.6 L (27.0-31.0) pg MCHC 31.6 L (32.0-36.0) g/dL RDW 24.1 H (12.0-15.0) % Plt Count 342 (130-450) 10^3/uL MPV 7.9 (7.9-10.8) fL Neut # 9.3 H (1.5-6.6) 10^3/uL Lymph # 2.2 (1.5-3.5) 10^3/uL [place] # 0.7 (0.0-1.0) 10^3/uL Eos # 0.1 (0.0-0.7) 10^3/uL Baso # 0.1 (0.0-0.1) 10^3/uL Absolute Nucleated RBC 0.04 x10^3/uL Nucleated RBCs 0.3 /100WBC Manual Slide Review Indicated Platelet Estimate NORMAL (130-450,000) (NORMAL) Platelet Morphology 1+ GIANT PLATELETS (NORMAL) RBC Morph Micro Appear 1+ POLYCHROMASIA (NORMAL) Creatinine (0.4-1.0) mg/dL Estimated GFR (MDRD) (>89) AST (10-42) IU/L Lactate Dehydrogenase (91-225) IU/L Urine Color YELLOW Urine Clarity CLEAR (CLEAR) Urine pH 6.0 (5.0-7.5) PH Ur Specific [place] 1.015 (1.002-1.030) Urine Protein NEGATIVE (NEGATIVE) mg/dL Urine Glucose (UA) NEGATIVE (NEGATIVE) mg/dL Urine Ketones NEGATIVE (NEGATIVE) mg/dL Urine Occult Blood MODERATE H (NEGATIVE) Urine Nitrite NEGATIVE (NEGATIVE) Urine Bilirubin NEGATIVE (NEGATIVE) Urine Urobilinogen 0.2 (NORMAL) (NORMAL) E.U./dL Ur Leukocyte Esterase NEGATIVE (NEGATIVE) Urine RBC 11-25 H (0-5) /HPF Urine WBC 0-3 (0-5) /HPF Ur Squamous Epith Cells FEW Squamous (<= Few) Urine Bacteria None Seen (None Seen) /HPF Ur Microscopic Review INDICATED Urine Culture Comments NOT INDICATED Urine Creatinine 53.3 mg/dL Ur Total Protein Timed 8 mg/dL Protein/Creatinin Ratio 0.2 (<=0.2) T.pallidum IgG (EIA) (()) 11/17/16 Range/Units 09:06 WBC (4.8-10.8) x10^3/uL RBC (4.20-5.40) 10^6/uL Hgb (12.0-16.0) g/dL Hct (37.0-47.0) % MCV (81.0-99.0) fL MCH (27.0-31.0) pg MCHC (32.0-36.0) g/dL RDW (12.0-15.0) % Plt Count (130-450) 10^3/uL MPV (7.9-10.8) fL Neut # (1.5-6.6) 10^3/uL Lymph # (1.5-3.5) 10^3/uL [place] # (0.0-1.0) 10^3/uL Eos # (0.0-0.7) 10^3/uL Baso # (0.0-0.1) 10^3/uL Absolute Nucleated RBC x10^3/uL Nucleated RBCs /100WBC Manual Slide Review Platelet Estimate (NORMAL) Platelet Morphology (NORMAL) RBC Morph Micro Appear (NORMAL) Creatinine (0.4-1.0) mg/dL Estimated GFR (MDRD) (>89) AST (10-42) IU/L Lactate Dehydrogenase (91-225) IU/L Urine Color Urine Clarity (CLEAR) Urine pH (5.0-7.5) PH Ur Specific [place] (1.002-1.030) Urine Protein (NEGATIVE) mg/dL Urine Glucose (UA) (NEGATIVE) mg/dL Urine Ketones (NEGATIVE) mg/dL Urine Occult Blood (NEGATIVE) Urine Nitrite (NEGATIVE) Urine Bilirubin (NEGATIVE) Urine Urobilinogen (NORMAL) E.U./dL Ur Leukocyte Esterase (NEGATIVE) Urine RBC (0-5) /HPF Urine WBC (0-5) /HPF Ur Squamous Epith Cells (<= Few) Urine Bacteria (None Seen) /HPF Ur Microscopic Review Urine Culture Comments Urine Creatinine mg/dL Ur Total Protein Timed mg/dL Protein/Creatinin Ratio (<=0.2) T.pallidum IgG (EIA) NEGATIVE (()) Assessment/Plan - Problem List (1) HELLP syndrome, delivered, current hospitalization Impression: 35 yo S/p 11/19/2015, PPD #2 No symptoms of pre-eclampsia/ HELLP AST mildly elevated at 46 BP's improved after labetalol Discharge to home if BP's continue to improve this PM Rx for labetalol to be sent to [facility] in [place] via [facility] Return next week for BP check in clinic Call for worsening fevers, chills, abdominal pain, vaginal bleeding, DODGE, RUQ pain, visual changes Concerning for depression-- will monitor carefully Rx sent already to [facility] (ibuprofen, tylenol, colace) Handwritten Rx for vicodin Discharge summary dictated [id number] Discharge Plan Disposition: 01 Home, Self Care Condition: Good Diet: Regular Activity Restrictions: Activity as Tolerated Shower Restrictions: No Driving Restrictions: Yes (No driving while on vicodin) Weight Bearing: Full Weight No Smoking: If you smoke, Please STOP! Call for help.
[2016-11-20 18:14] VITALS: BP 129/75
--- NOTE | 2016-11-23 08:07 | DISCHARGE SUMMARY ---
DATE OF ADMISSION: 11/17/2016 DATE OF DISCHARGE: 11/20/2016 DIAGNOSES ON ADMISSION: 1. A 35-year-old G3, P0-0-2-0, with a 41 0/7 week intrauterine . 2. HELLP. 3. Iron deficiency anemia, mild. DIAGNOSES ON DISCHARGE: 1. A 35-year-old G3, P1-0-2-1 status post spontaneous vaginal delivery on 11/18/2016. 2. Resolving HELLP. 3. Status post transfusion on 11/19/2016. 4. Normal recovery. BRIEF HISTORY: This is a patient of [facility] with whom we have been taking care of her entire course. Her has been remarkable for late initiation of care a t about 25 weeks' gestation, poor maternal nutrition and illicit drug use early in the . She did receive an iron transfusion with this at 30 weeks' gestation. Urine toxicology screens during this have been negative. The patient presented at 40 weeks's gestation for inductio n of labor secondary to postdates. Unfortunately, due to the high patient census we could not initiat e her cervical ripening as quickly as we would have liked. The patient, however, spontaneously went i n to labor. Also of note, when her blood pressure was first taken on 11/17/2016 her blood pressure wa s elevated in the 150s over 100s at its worst. Preeclampsia labs were significant for mildly elevated AST of 46. She did receive an epidural for pain control and spontaneously delivered a viable male in lacy named . His Apgars were 9 and 9 at one and 5 minutes, respectively and he weighed 5 poun ds 15.9 ounces. EBL was 300 mL and there were no complications. Patient was given magnesium sulfate f or 12 hours after delivery, as well as the iron transfusion. Her course has been unremarkable. She is ambulating and tolerating a regular diet. She is also urinating without difficulty, and her pain is controlled with oral medications. trung Barlow, started having difficulties with his sugar control and required IV glucose strip. In addition, on the same day of his he started having difficulties with breathing and needed to be transported to [facility]. Per the patient report, the baby is doing well. I will discharge patient to home on day #2, 11/19/2016. She will be given a prescription f or Vicodin and prescriptions for ibuprofen, Tylenol and Colace has already been sent to her primary p harmacy of choice, which is [facility] in [place]. Patient will see me in 6 weeks for routin e visit. She is to call should she have any worsening fevers, chills, abdominal pain or va ginal bleeding. JOB #: [id number] EXT JOB #:[id number]
== END 2016-11-20 18:00 | disposition home or self-care (01) | DRG 774 ==
LOC: WFO 07:21 → FBP 07:22 → WFO 11:06 → FBP 11:07 → OBSVTOIN 22:00
PROVIDERS: ADMIT Obstetrics & Gynecology; ATTEND Obstetrics & Gynecology
PROC: 10E0XZZ Delivery of Products of Conception, External Approach (ICD-10-PCS; principal; 2016-11-18)
DX: O14.24 HELLP syndrome, complicating childbirth (principal); O73.0 Retained placenta without hemorrhage; O33.0 Maternal care for disproportion due to deformity of maternal pelvic bones; Z37.0 Single live birth; Z3A.41 41 weeks gestation of pregnancy; O48.0 Post-term pregnancy; O36.5930 Maternal care for other known or suspected poor fetal growth, third trimester, not applicable or unspecified; O99.02 Anemia complicating childbirth; D50.9 Iron deficiency anemia, unspecified; O99.334 Smoking (tobacco) complicating childbirth; F17.210 Nicotine dependence, cigarettes, uncomplicated; O77.0 Labor and delivery complicated by meconium in amniotic fluid; O70.0 First degree perineal laceration during delivery; Z87.898 Personal history of other specified conditions
CPT/HCPCS: 36415; 59025; 80306; 81001; 81003; 82565; 82570; 82728; 83615; 84156; 84450; 84550; 85025; 86780; 87086; 88307; 96365; 96366; 96367; 96375; 99406

== ENCOUNTER 2017-10-12 15:44 | Outpatient (CLI) | payer MEDICAID ==
[2017-10-12 16:05] LABS: BASOPHILS # (AUTO) 0.1 10^3/uL (0.0-0.1); BASOPHILS % (AUTO) 1.4 %; EOSINOPHILS # (AUTO) 0.2 10^3/uL (0.0-0.7); HGB - HEMOGLOBIN 13.7 g/dL (12.0-16.0); LYMPHOCYTES # (AUTO) 2.8 10^3/uL (1.5-3.5); LYMPHOCYTES % (AUTO) 36.5 %; MEAN CORPUSCULAR HEMOGLOBIN 27.8 pg (27.0-31.0); MEAN CORPUSCULAR HGB CONC 32.3 g/dL (32.0-36.0); MEAN CORPUSCULAR VOLUME 86.2 fL (81.0-99.0); MEAN PLATELET VOLUME 7.3 fL (7.9-10.8); MONOCYTES # (AUTO) 0.4 10^3/uL (0.0-1.0); MONOCYTES % (AUTO) 5.3 %; NEUTROPHILS # (AUTO) 4.2 10^3/uL (1.5-6.6); NEUTROPHILS % (AUTO) 54.8 %; PLT - PLATELET COUNT 445 10^3/uL (130-450); RED BLOOD COUNT 4.92 10^6/uL (4.20-5.40); RED CELL DISTRIBUTION WIDTH 16.6 % (12.0-15.0); WHITE BLOOD COUNT 7.7 x10^3/uL (4.8-10.8)
[2017-10-12 16:12] LABS: HCG UR QUAL NEGATIVE
== END 2017-10-12 15:45 | disposition home or self-care (01) ==
LOC: LAB 15:44
PROVIDERS: ATTEND Obstetrics & Gynecology
DX: Z30.2 Encounter for sterilization (principal)
CPT/HCPCS: 36415; 81025; 85025

== ENCOUNTER 2017-10-13 11:59 | Day surgery (SDC) | payer MEDICAID ==
--- NOTE | 2017-10-12 16:06 | PREOP HISTORY & PHYSICAL ---
DATE OF SERVICE: 10/13/2017 Physician: Mu Arriaga MD PATIENT IDENTIFICATION: The patient is a 36-year-old G3, P1, AB2 0 whose LMP was 10/05/2017. CHIEF COMPLAINT: Undesired fertility. HISTORY OF PRESENT ILLNESS: Patient is requesting a laparoscopic tubal sterilization. She is aware of the alternate forms of contraception to include control pills, foam and condoms, IUDs. She is requesting a tubal ligation. She is aware of potential failure rate of roughly 3-5 per thousand. PAST MEDICAL HISTORY: The patient denies any hypertensive, diabetic, cardiac or pulmonary disease. PAST SURGICAL HISTORY: Positive for D&C x2. ALLERGIES: NONE KNOWN. CURRENT MEDICATIONS: None. HABITS: The patient denies use of tobacco, drinks alcohol only occasionally, and also uses tetrahydrocannabinol only occasionally. FAMILY HISTORY: Positive for brain cancer. She denies any INSURANCE SALES AGENT cancer such as breast, ovarian or uterine cancer. SOCIAL HISTORY: Patient lives with a friend. She lives in a safe environment at this time. REVIEW OF SYSTEMS: Negative. PHYSICAL EXAMINATION GENERAL: Patient is a well-developed, well-nourished white female, in no acute distress. VITAL SIGNS: Blood pressure 128/64. HEENT: Pupils are equal, round and reactive to light. Extraocular muscles are intact. There was no evidence of any scleral icterus. Mouth is clear. Thyroid is not palpably enlarged. HEART: Regular rate and rhythm without murmurs. LUNGS: Lung guthrie are clear without rales or wheezes. BACK: No spinal or CVA tenderness noted. ABDOMEN: Soft, nontender without evidence of any surgical scars. PELVIC: Deferred as she has had one recently. IMPRESSION: A 36-year-old G3, P1, AB2 female who requests tubal sterilization. PLAN: We will perform laparoscopic tubal ligation with salpingectomy. Risks and benefits explained to the patient including those but are not limited to bleeding, infection, injury to pelvic organs which include the uterus, tubes, ovaries, bowel, bladder, and ureters. She is aware of the potential DVT with PE as well as postop adhesion which could cause pain, bowel obstruction, and fertility. Failure of 3-08/999. TD: 10/12/2017 15:30 [facility]
[~2017-10-13 11:59] MED LIST: ceFAZolin 1 GM VIAL ONE
[2017-10-13] MEDS ORDERED: BUPIVACAINE 0.25%-EPI 1:200000 PF 30 ML VIAL ONE (13:57)
[2017-10-13] MEDS ORDERED: BUPIVACAINE 0.25%-EPI 1:200000 PF 10 ML VIAL SUBQ ONE ×2 (14:01)
[2017-10-13 14:59] LABS: HCG UR QUAL NEGATIVE
[2017-10-13] MEDS ORDERED: LACTATED RINGERS 1,000 ML IV ONE (15:21)
[2017-10-13 15:44] VITALS: BP 116/72
[2017-10-13] MEDS ORDERED: NEOSTIGMINE 1 MG/1 ML 10 ML MDV IVP ONE (17:09)
[2017-10-13] MEDS ORDERED: PROPOFOL 200 MG/20 ML VIAL IVP ONE (17:09)
[2017-10-13] MEDS ORDERED: KETOROLAC 30 MG/ML VIAL IVP ONE (17:09)
[2017-10-13] MEDS ORDERED: LIDOCAINE-MPF 2% 5 ML VIAL IM ONE (17:09)
[2017-10-13] MEDS ORDERED: fentaNYL 100 MCG/2 ML VIAL IVP ONE (17:09)
[2017-10-13] MEDS ORDERED: ONDANSETRON 4 MG/2 ML VIAL IVP ONE (17:09)
[2017-10-13] MEDS ORDERED: GLYCOPYRROLATE 1 MG/5 ML VIAL IVP ONE (17:09)
[2017-10-13] MEDS ORDERED: HYDROmorphone 0.5 MG/0.5 ML SYRINGE IVP PRN (18:47)
[2017-10-13] MEDS ORDERED: oxyCODONE 5 MG TABLET PO PRN (18:48)
[2017-10-13] MEDS ORDERED: ONDANSETRON 4 MG/2 ML VIAL IVP PRN (18:48)
[2017-10-13] MEDS ORDERED: KETOROLAC 30 MG/ML VIAL IVP SCH (19:00)
[2017-10-13] MEDS ORDERED: LACTATED RINGERS 1,000 ML IV SCH (19:00)
--- NOTE | 2017-10-13 19:26 | OPERATIVE REPORT ---
DATE OF SERVICE: 10/13/2017 Physician: uM Arriaga MD PREOPERATIVE DIAGNOSIS: Undesired fertility. POSTOPERATIVE DIAGNOSIS: Undesired fertility. PROCEDURE: Laparoscopic bilateral salpingectomy. SURGEON: Mu Arriaga MD. ANESTHESIA: Evaristo Salazar MD. ESTIMATED BLOOD LOSS: 10 mL. FINDINGS: Uterus was noted to be retroverted. The tubes and ovaries appeared to be free of disease. There is no evidence of any endometriosis. The appendix appeared to be normal, as was the liver. SPECIMENS FOR PATHOLOGY: Left and right fallopian tubes. DESCRIPTION OF PROCEDURE: Following adequate general anesthesia via endotracheal tube, patient was placed in the dorsal lithotomy position in [facility]. At this point, pelvic examination was performed and the uterus was felt to be retroverted. The adnexa were not palpably enlarged. She was prepped and draped in the usual fashion. Timeout was performed, which concerns were discussed and none were noted at this time. Patient had the procedure delayed for 6 hours secondary to the fact that she had had a small spoon of eggs as she was feeding her this morning. At this point, following prep and draping, speculum was placed in the vagina. The cervix was visualized, grasped with a single-tooth tenaculum. The uterus was sounded to 7.5 cm in retroverted position. It was dilated with size 8 Hegar dilator, following which a HUMI manipulator was placed in the retroverted position and rotated anterior. This was then inflated. The speculum was removed. The billing machine operator's gloves were changed and then proceeding on with laparoscopy. Following insertion of the subumbilical port, 2 ports were placed both in the left and right lower quadrants following local anesthesia with 0.25% Marcaine as well as skin incision with a #11 blade. The pelvis was inspected. Photographs were obtained. The left fallopian tube was grasped with a Prestige grasper and then the mesosalpinx was cauterized and transected utilizing a LigaSure. This was carried all the way to the cornu , at which time the tube was freed from the cornu of the uterus. This was then brought through the 5 mm port. The contralateral side was treated in identical fashion. The fimbriated end was grasped, and then the mesosalpinx was cauterized, transected all the way to the cornu and then removed through the 5 mm port. Both of these surgical margins were inspected for bleeding, none was noted. The pelvis was inspected to be free of any active bleeding. There was a small amount of blood in the pelvis. The appendix was noted to be normal. The liver appeared to be normal. There was no evidence of any bleeding at this point. The instruments were removed from the abdominal wall. CO2 was allowed to escape. The incisions were closed using 4-0 Monocryl following injection of 0.25% Marcaine with epinephrine. These were then dressed with Dermabond. The instruments were then removed from the vagina. There was a scant amount of blood noted from the vaginal vault. Patient tolerated the procedure well and was taken to the recovery in stable condition. Sponge and needle counts were correct. TD: 10/13/2017 17:51 [facility]ARATH
== END 2017-10-13 20:00 | disposition home or self-care (01) ==
LOC: SDS 11:59 → MS2 17:00 → OBS 17:00 → SDS 18:36 → MS2 18:36 → SDS 19:29 → MS2 19:31 → SDS 20:00
PROVIDERS: ATTEND Obstetrics & Gynecology
PROC: 0UT74ZZ Resection of Bilateral Fallopian Tubes, Percutaneous Endoscopic Approach (ICD-10-PCS; principal; 2017-10-13 13:00)
DX: Z30.2 Encounter for sterilization (principal)
CPT/HCPCS: 58661; 81025; A9270; J7120

== ENCOUNTER 2022-02-02 13:05 | Emergency (ER) | payer MEDICAID ==
--- NOTE | 2022-02-02 14:11 | ED Physician Documentation ---
PD HPI ABD PAIN - Stated complaint Stated Complaint: PARASITES INSIDE - Chief complaint Chief Complaint: General - History obtained from History obtained from: Patient - History of Present Illness Timing - onset: How many months ago (The patient states she has had concern for episodic general abdominal crampy pains and occasional sharp pains for the last few months intermittently. Worse after eating. She is concerned that she has parasites that are doing this. She states she has seen some of them in her stool.), Other (Increased cramping and pain in the last week or 2. She states the parasite appearing objects in her stool look like Grasshopper's.) Timing - details: Gradual onset, Still present (worse the past 1-2 weeks.), Waxing and waning Quality: Cramping, Aching, Sharp (at times), Pain Location: All over / everywhere Radiation: Chest, Lower back Worsened by: Eating. No: Breathing, Palpation Associated symptoms: Nausea, Loss of appetite. No: Fever, Vomiting, Diarrhea, Hematochezia, Dysuria, Weight loss Similar symptoms before: Has not had sx before Recently seen: Not recently seen Review of Systems Constitutional: denies: Fever Nose: denies: Rhinorrhea / runny nose, Congestion Throat: denies: Sore throat Respiratory: denies: Cough GI: reports: Abdominal Pain, Nausea. denies: Abdominal Swelling, Vomiting, Diarrhea : denies: Dysuria Skin: denies: Rash Psychiatric: reports: Anxiety, Insomnia. denies: Suicidal, Homicidal PD PAST MEDICAL HISTORY - Past Medical History Cardiovascular: None Respiratory: None Neuro: None Endocrine/Autoimmune: None Psych: Bipolar disorder (She denies firm diagnosis nor prior treatment for bipolar but states she has been told that that may be problem for her.) Musculoskeletal: None - Present Medications Home Medications: Ambulatory Orders Medication Instructions Recorded Confirmed Dicyclomine [Bentyl] 10 mg PO TID PRN #20 cap 02/02/22 Docusate Sodium 100Mg Capsule 100 mg PO DAILY #15 cap 02/02/22 [Colace 100Mg Capsule] Ferrous Gluconate [Fergon] 324 mg PO DAILY #30 tablet 02/02/22 LORazepam [Ativan] 1 mg PO BID PRN #12 tablet 02/02/22 - Allergies Allergies/Adverse Reactions: Allergies Allergy/AdvReac Type Severity Reaction Status Date / Time No Known Drug Allergies Allergy Verified 02/02/22 13:24 - Social History Smoking Status: Current every day smoker PD ED PE NORMAL - Vitals Vital signs reviewed: Yes - General General: Alert and oriented X 3, Well developed/nourished, Other (Very anxious and tearful and concerned about having the parasites in her intestine and now abdominal cavity.) - Neck Neck: Supple, no meningeal sign, No adenopathy - Cardiac Cardiac: RRR, No murmur - Respiratory Respiratory: Clear bilaterally - Abdomen Abdomen: Normal bowel sounds, Soft, Non distended, No organomegaly, Other (Mild tenderness in the periumbilical to left side. No guarding or percussion tenderness.) - Back Back: No CVA TTP - Derm Derm: Normal color, Warm and dry - Extremities Extremities: No tenderness to palpate, Normal ROM s pain - Neuro Neuro: Alert and oriented X 3, No motor deficit, Normal speech Results - Vitals Vitals: Vital Signs - 24 hr 02/02/22 02/02/22 02/02/22 13:19 15:06 18:10 Temperature 36.0 C L Heart Rate 93 68 52 L Respiratory 16 16 14 Rate Blood Pressure 108/73 118/80 143/82 H O2 Saturation 100 100 100 Oxygen O2 Source Room air - Labs Labs: Laboratory Tests 02/02/22 02/02/22 02/02/22 14:45 14:45 14:45 WBC 10.0 RBC 4.53 Hgb 9.7 L Hct 34.2 L MCV 75.5 L MCH 21.4 L MCHC 28.4 L RDW 17.1 H Plt Count 495 H MPV 8.5 Neut # (Auto) 5.8 Lymph # (Auto) 2.8 [place] # (Auto) 1.0 Eos # (Auto) 0.3 Baso # (Auto) 0.1 Absolute Nucleated RBC 0.00 Nucleated RBC % 0.0 Manual Slide Review Indicated Platelet Estimate INCREASED (>450,000) Platelet Morphology NORMAL APPEARANCE RBC Morph Micro Appear 2+ ANISOCYTOSIS ESR 17 Sodium 138 Potassium 4.0 Chloride 108 Carbon Dioxide 25 Anion Gap 5.0 L BUN 9 Creatinine 0.6 Estimated GFR (MDRD) 109 Glucose 83 Calcium 8.7 Iron TIBC % Saturation Transferrin Total Bilirubin 0.3 AST 37 ALT 15 Alkaline Phosphatase 86 Total Protein 7.1 Albumin 4.2 Globulin 2.9 Albumin/Globulin Ratio 1.4 Lipase 30 TSH Urine Color Urine Clarity Urine pH Ur Specific [place] Urine Protein Urine Glucose (UA) Urine Ketones Urine Occult Blood Urine Nitrite Urine Bilirubin Urine Urobilinogen Ur Leukocyte Esterase Ur Microscopic Review Urine Culture Comments Urine HCG, Qual Urine Opiates Screen Ur Oxycodone Screen Urine Methadone Screen Ur Propoxyphene Screen Ur Barbiturates Screen Ur Tricyclics Screen Ur Phencyclidine Scrn Ur Amphetamine Screen U Methamphetamines Scrn U Benzodiazepines Scrn Urine Cocaine Screen U Cannabinoids Screen Ethyl Alcohol < 5.0 02/02/22 02/02/22 02/02/22 14:45 14:45 18:05 WBC RBC Hgb Hct MCV MCH MCHC RDW Plt Count MPV Neut # (Auto) Lymph # (Auto) [place] # (Auto) Eos # (Auto) Baso # (Auto) Absolute Nucleated RBC Nucleated RBC % Manual Slide Review Platelet Estimate Platelet Morphology RBC Morph Micro Appear ESR Sodium Potassium Chloride Carbon Dioxide Anion Gap BUN Creatinine Estimated GFR (MDRD) Glucose Calcium Iron 19 L TIBC 505 H % Saturation 4 L Transferrin 361 Total Bilirubin AST ALT Alkaline Phosphatase Total Protein Albumin Globulin Albumin/Globulin Ratio Lipase TSH 3.58 Urine Color YELLOW Urine Clarity CLEAR Urine pH 6.0 Ur Specific [place] <=1.005 Urine Protein NEGATIVE Urine Glucose (UA) NEGATIVE Urine Ketones NEGATIVE Urine Occult Blood NEGATIVE Urine Nitrite NEGATIVE Urine Bilirubin NEGATIVE Urine Urobilinogen 0.2 (NORMAL) Ur Leukocyte Esterase NEGATIVE Ur Microscopic Review NOT INDICATED Urine Culture Comments NOT INDICATED Urine HCG, Qual NEGATIVE Urine Opiates Screen NEGATIVE Ur Oxycodone Screen NEGATIVE Urine Methadone Screen NEGATIVE Ur Propoxyphene Screen NEGATIVE Ur Barbiturates Screen NEGATIVE Ur Tricyclics Screen NEGATIVE Ur Phencyclidine Scrn NEGATIVE Ur Amphetamine Screen POSITIVE H U Methamphetamines Scrn POSITIVE H U Benzodiazepines Scrn NEGATIVE Urine Cocaine Screen NEGATIVE U Cannabinoids Screen NEGATIVE Ethyl Alcohol - Rads (name of study) abd/pelvic CT Radiology: Prelim report reviewed (No obvious acute abnormality except for some scattered mesenteric adenopathy of small size. Unclear cause.), See rad report PD MEDICAL DECISION MAKING - ED course Complexity details: reviewed results (Her CT scan shows some mesenteric adenopathy scattered. Not large enough or concerning necessarily for lymphoma dose. Consider inflammatory or infection. Her blood test white count was normal. She is anemic appearing iron deficient. The differential in her white cells did not show eosinophia.), re-evaluated patient (Less anxious and jittery after Zyprexa and Ativan. She did sleep for couple of hours. When awake she still has concerns of intestinal parasitism.), considered differential (Patient describes abdominal pains and cramps and has a feeling of parasites causing it. She does warrant evaluation of her abdomen to ensure no acute process such as colitis or Crohn's. However my thought may be a delusional process. She does have anxiety and states poor sleep lately.), d/w patient ED course: She is just now up to give us a stool sample if she can and also a urine test. Urine test mainly interesting would be the U tox which I presume will be positive for meth though her delusional parasitism could be bipolar as well. Still pending is stool for O&P to see if she may actually have some intestinal parasites. This could be causing the mesenteric adenopathy. Also consider IBD/IBS for her lower abd cramps. Departure - Departure Clinical Impression: Abdominal cramping, Fear of parasites Anemia, iron deficiency Qualifiers: Iron deficiency anemia type: unspecified iron deficiency Qualified Code(s): D50.9 - Iron deficiency anemia, unspecified Condition: Stable Record reviewed to determine appropriate education?: Yes Prescriptions: LORazepam [Ativan] 1 mg PO BID PRN #12 tablet PRN Reason: Anxiety Dicyclomine [Bentyl] 10 mg PO TID PRN #20 cap PRN Reason: Abdominal Pain Docusate Sodium 100Mg Capsule [Colace 100Mg Capsule] 100 mg PO DAILY #15 cap Ferrous Gluconate [Fergon] 324 mg PO DAILY #30 tablet Comments: You do have some lymph nodes noted in the abdominal cavity which could suggest an intestinal infection or inflammation. No specific site of infection is seen on the CT scan. To further test for parasites or infections in your intestine, this would require a stool study to directly look for them. As you have not had to have us stool/bowel movement here, we will send you home with a stool collection kit and you can bring it back to the lab for testing. Concerns for parasites in general (causing as much anxiety as it is for you) sometimes is a manifestation of psychological or psychiatric problems such as severe insomnia, bipolar disorder, etc. It could also be a manifestation of some medication side effects or drug side effects. Be wary of not using any substances, if this applies to you. For your intestinal cramps, I prescribed dicyclomine and docusate to help with symptoms. You can also use Tylenol every 4 hours if needed. Also prescribed lorazepam to use at night if needed for sleep or for anxiety for the next few days to week. I sent your prescriptions to your [facility] pharmacy. Follow-up with your primary care if you have or walk-in clinics etc. Home and sleep well tonight as is does sound like you are sleep deprived and that may be contributing or augmenting some of the symptoms. We are still looking to ensure if any treatment needed for your intestinal symptoms. Forms: Activity restrictions
[2022-02-02] MEDS ORDERED: SODIUM CHLORIDE 0.9% 1,000 ML IV STA ×2 (14:31→18:07)
[2022-02-02] MEDS ORDERED: LORazepam 2 MG/ML VIAL IVP STA (14:31)
[2022-02-02] MEDS ORDERED: KETOROLAC 15 MG/ML VIAL IVP STA (14:32)
[2022-02-02] MEDS ORDERED: iohexoL-300 100 ML VIAL ONE (14:40)
[2022-02-02 14:53] LABS: BASOPHILS # (AUTO) 0.1 10^3/uL (0.0-0.1); BASOPHILS % (AUTO) 1.3 %; EOSINOPHILS # (AUTO) 0.3 10^3/uL (0.0-0.7); EOSINOPHILS % (AUTO) 3.2 %; HCT - HEMATOCRIT 34.2 % (37.0-47.0); HGB - HEMOGLOBIN 9.7 g/dL (12.0-16.0); LYMPHOCYTES # (AUTO) 2.8 10^3/uL (1.5-3.5); LYMPHOCYTES % (AUTO) 28.1 %; MEAN CORPUSCULAR HEMOGLOBIN 21.4 pg (27.0-31.0); MEAN CORPUSCULAR HGB CONC 28.4 g/dL (32.0-36.0); MEAN CORPUSCULAR VOLUME 75.5 fL (81.0-99.0); MEAN PLATELET VOLUME 8.5 fL (7.9-10.8); MONOCYTES % (AUTO) 9.7 %; NEUTROPHILS # (AUTO) 5.8 10^3/uL (1.5-6.6); NEUTROPHILS % (AUTO) 57.5 %; PLT - PLATELET COUNT 495 10^3/uL (130-450); RED BLOOD COUNT 4.53 10^6/uL (4.20-5.40); RED CELL DISTRIBUTION WIDTH 17.1 % (12.0-15.0)
[2022-02-02 14:58] LABS: SLIDE REVIEW? Indicated
[2022-02-02 15:07] LABS: ALBUMIN 4.2 g/dL (3.2-5.5); ALBUMIN/GLOBULIN RATIO 1.4 (1.0-2.2); ALKALINE PHOSPHATASE 86 IU/L (42-121); ALT ALANINE AMINOTRANSFERASE 15 IU/L (10-60); AST ASPARTATE AMINOTRANSFERASE 37 IU/L (10-42); BILIRUBIN,TOTAL 0.3 mg/dL (0.2-1.0); BUN - BLOOD UREA NITROGEN 9 mg/dL (6-20); CALCIUM 8.7 mg/dL (8.5-10.3); CARBON DIOXIDE - CO2 25 mmol/L (21-32); CHLORIDE 108 mmol/L (101-111); CREATININE 0.6 mg/dL (0.4-1.0); ETOH - ETHANOL < 5.0 mg/dL; GFR - MDRD 109 (>89); GLUCOSE 83 mg/dL (70-100); LIPASE 30 U/L (22-51); SODIUM 138 mmol/L (135-145); TOTAL PROTEIN 7.1 g/dL (6.7-8.2)
[2022-02-02] MEDS ORDERED: OLANZapine ODT 5 MG TABLET TL ONE (15:12)
[2022-02-02 15:16] LABS: PLATELET ESTIMATE, MANUAL INCREASED (>450,000) (NORMAL); PLATELET MORPHOLOGY NORMAL APPEARANCE (NORMAL)
[2022-02-02 15:58] LABS: % IRON SATURATION 4 % (20-50); IRON 19 ug/dL (28-170); TOTAL IRON BINDING CAPACITY 505 ug/dL (250-450); TRANSFERRIN 361 mg/dL (192-382)
--- NOTE | 2022-02-02 16:24 | CT Report ---
PROCEDURE: ABDOMEN/PELVIS W INDICATIONS: diffuse abd sharp pains (pt feels has parasites) CONTRAST: 100ml Omnipaque 300 TECHNIQUE: After the administration of IV contrast, 5 mm thick sections acquired from the diaphragms to the symp hysis. 5 mm thick coronal and sagittal reformats were acquired. For radiation dose reduction, the f ollowing was used: automated exposure control, adjustment of mA and/or kV according to patient size. COMPARISON: None. FINDINGS: Image quality: Excellent. ABDOMEN: Lung bases: Lung bases are clear. Heart size is normal. Solid organs: Liver is enlarged with steatosis. The spleen is normal in size and enhancement. Gallb ladder is unremarkable Biliary system is non dilated. Pancreas enhances normally. No adrenal nodul es. Kidneys demonstrate normal size and enhancement, without hydronephrosis. Peritoneum and bowel: Bowel loops demonstrate normal wall thickness and caliber. Moderate colonic s tool. No free fluid or air. Nodes and vessels: No retroperitoneal or mesenteric adenopathy by size criteria. Multiple subcentim eter mesenteric lymph nodes are present. Aorta and inferior vena cava are normal in size. Miscellaneous: No ventral hernias. PELVIS: Genitourinary: Bladder wall thickness is normal. Miscellaneous: No inguinal hernias or adenopathy. Bones: No suspicious bony lesions. No vertebral body compression fractures. IMPRESSION: Moderate colonic stool without obstruction. Multiple subcentimeter mesenteric lymph nodes are present of uncertain etiology. These could be react sarita in nature. No priors are available for comparison. Reviewed by: Rolanda Abdi MD on 02/02/2022 4:22 PM PDT Approved by: Rolanda Abdi MD on 02/02/2022 4:22 PM PDT Station ID: [id number]
[2022-02-02] MEDS ORDERED: iohexoL-300 100 ML VIAL IVP ONE (17:35)
[2022-02-02 18:13] LABS: MUDS CUTOFF CONCENTRATIONS CUTOFF CONC BELOW:
[2022-02-02 18:17] LABS: BILIRUBIN,URINE NEGATIVE (NEGATIVE); GLUCOSE, URINE (UA) NEGATIVE (NEGATIVE); KETONES,URINE (UA) NEGATIVE (NEGATIVE); LEUKOCYTE ESTERASE, URINE NEGATIVE (NEGATIVE); NITRITE,URINE NEGATIVE (NEGATIVE); OCCULT BLOOD,URINE NEGATIVE (NEGATIVE); PROTEIN,URINE NEGATIVE (NEGATIVE); UROBILINOGEN,URINE 0.2 (NORMAL) E.U./dL (NORMAL)
[2022-02-02 18:22] LABS: CLARITY,URINE CLEAR (CLEAR); HCG UR QUAL NEGATIVE
[2022-02-02 18:28] LABS: AMPHETAMINE SCREEN,URINE POSITIVE (NEGATIVE); BARBITURATE SCREEN,UR NEGATIVE (NEGATIVE); BENZODIAZEPINES SCREEN, URINE NEGATIVE (NEGATIVE); COCAINE SCREEN URINE NEGATIVE (NEGATIVE); METHADONE SCREEN, URINE NEGATIVE (NEGATIVE); METHAMPHETAMINES SCREEN, URINE POSITIVE (NEGATIVE); OPIATE SCREEN, URINE NEGATIVE (NEGATIVE); OXYCODONE SCREEN, URINE NEGATIVE (NEGATIVE); PROPOXYPHENE SCREEN, URINE NEGATIVE (NEGATIVE); THC CANNABINOID SCREEN, URINE NEGATIVE (NEGATIVE); TRICYCLIC ANTIDEPRESSANT,URINE NEGATIVE (NEGATIVE)
[2022-02-02 20:13] VITALS: BP 121/78
== END 2022-02-02 20:10 | disposition home or self-care (01) ==
LOC: ED 13:05
DX: R10.9 Unspecified abdominal pain (principal); D50.9 Iron deficiency anemia, unspecified; F40.298 Other specified phobia; F17.200 Nicotine dependence, unspecified, uncomplicated
CPT/HCPCS: 36415; 74177; 80053; 80306; 80320; 81003; 81025; 83540; 83690; 84443; 84466; 85025; 85651; 96374; 96375; 99284; A9270; J2060; Q9967; 81001; 83630; 87086

== ENCOUNTER 2023-02-12 22:25 | Outpatient (CLI) | payer MEDICAID, OTHER | END 2023-02-12 22:26 | disposition critical access hospital (66) | LOC: EMS 22:25 | DX: S29.9XXA Unspecified injury of thorax, initial encounter (principal); S70.212A Abrasion, left hip, initial encounter; M79.652 Pain in left thigh; S69.92XA Unspecified injury of left wrist, hand and finger(s), initial encounter; V20.59XA Other motorcycle passenger injured in collision with pedestrian or animal in traffic accident, initial encounter; Y92.413 State road as the place of occurrence of the external cause | CPT/HCPCS: A0425; A0427; A0999 ==

== ENCOUNTER 2023-02-12 22:37 | Observation (INO) | payer MEDICAID ==
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
[2023-02-12 23:08] LABS: BASOPHILS # (AUTO) 0.1 10^3/uL (0.0-0.1); BASOPHILS % (AUTO) 1.3 %; EOSINOPHILS # (AUTO) 0.2 10^3/uL (0.0-0.7); EOSINOPHILS % (AUTO) 1.7 %; HCT - HEMATOCRIT 28.5 % (37.0-47.0); HGB - HEMOGLOBIN 7.8 g/dL (12.0-16.0); LYMPHOCYTES # (AUTO) 2.5 10^3/uL (1.5-3.5); LYMPHOCYTES % (AUTO) 25.4 %; MEAN CORPUSCULAR HEMOGLOBIN 19.5 pg (27.0-31.0); MEAN CORPUSCULAR HGB CONC 27.4 g/dL (32.0-36.0); MEAN CORPUSCULAR VOLUME 71.1 fL (81.0-99.0); MONOCYTES # (AUTO) 0.8 10^3/uL (0.0-1.0); MONOCYTES % (AUTO) 8.4 %; NEUTROPHILS # (AUTO) 6.3 10^3/uL (1.5-6.6); NEUTROPHILS % (AUTO) 62.7 %; PLT - PLATELET COUNT 500 10^3/uL (130-450); RED BLOOD COUNT 4.01 10^6/uL (4.20-5.40); RED CELL DISTRIBUTION WIDTH 18.3 % (12.0-15.0); SLIDE REVIEW? Indicated
[2023-02-12 23:23] LABS: ALBUMIN 3.9 g/dL (3.2-5.5); ALBUMIN/GLOBULIN RATIO 1.4 (1.0-2.2); ALKALINE PHOSPHATASE 107 IU/L (42-121); ALT ALANINE AMINOTRANSFERASE 23 IU/L (10-60); AST ASPARTATE AMINOTRANSFERASE 29 IU/L (10-42); BILIRUBIN,TOTAL 0.2 mg/dL (0.2-1.0); BUN - BLOOD UREA NITROGEN 18 mg/dL (6-20); CARBON DIOXIDE - CO2 26 mmol/L (21-32); CHLORIDE 106 mmol/L (101-111); CREATININE 0.6 mg/dL (0.6-1.3); ETOH - ETHANOL < 10.0 mg/dL; GFR - MDRD 109 (>89); GLUCOSE 92 mg/dL (74-104); LIPASE 15 U/L (11-82); POTASSIUM 4.1 mmol/L (3.5-4.5); SODIUM 137 mmol/L (135-145); TOTAL PROTEIN 6.7 g/dL (6.4-8.9)
[2023-02-12 23:24] LABS: PLATELET ESTIMATE, MANUAL INCREASED (>450,000) (NORMAL); PLATELET MORPHOLOGY NORMAL APPEARANCE (NORMAL)
[2023-02-12 23:25] LABS: WBC MORPHOLOGY (MULTIPLE) NORMAL APPEARANCE (NORMAL)
--- NOTE | 2023-02-12 23:51 | XRAY Report ---
PROCEDURE: Pelvis 1 View INDICATIONS: left hip pain TECHNIQUE: 1 view(s) of the pelvis acquired. COMPARISON: None. FINDINGS: Bones: . Suggestion of acute fractures involving right superior pubic ramus extending to pubic symph ysis. Likely fracture involving right inferior pubic ramus is also noted. No gross acute hip fracture or dislocation. No evidence of avascular necrosis of femoral head. No suspicious bony lesions. Soft tissues: Visualized bowel gas pattern is normal. No suspicious soft tissue calcifications. IMPRESSION: Suggestion of acute slightly displaced right superior and likely inferior pubic ramus fractures. Reviewed by: Seth Zapata MD on 02/12/2023 11:50 PM PST Approved by: Seth Zapata MD on 02/12/2023 11:50 PM PST Station ID: [id number]
--- NOTE | 2023-02-12 23:53 | XRAY Report ---
PROCEDURE: Chest 1 View X-Ray INDICATIONS: chest pain TECHNIQUE: One view of the chest was acquired. COMPARISON: None. FINDINGS: Surgical changes and devices: None. Lungs and pleura: No pleural effusions or pneumothorax. There is suggestion of mild interstitial pul monary edema. Superimposed infiltrate versus atelectasis cannot be entirely excluded. Mediastinum: Mediastinal contours appear normal. Heart size is normal. Bones and chest wall: There is suggestion of right posterior ninth rib fracture. No suspicious bony lesions. Overlying soft tissues appear unremarkable. IMPRESSION: Suggestion of right posterior ninth rib fracture and possible right lower lung field cont usion/atelectasis. No pneumothorax. Mild pulmonary edema. Reviewed by: Seth Zapata MD on 02/12/2023 11:51 PM PST Approved by: Seth Zapata MD on 02/12/2023 11:51 PM PST Station ID: [id number]
[2023-02-12 23:55] LABS: HCG,QUALITATIVE BLOOD NEGATIVE
[2023-02-13] MEDS ORDERED: ONDANSETRON 4 MG/2 ML VIAL IVP STA (00:10)
[2023-02-13] MEDS ORDERED: MORPHINE 2 MG/ML CARPUJECT IVP STA (00:10)
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
[2023-02-13] MEDS ORDERED: ACETAMINOPHEN 325 MG TABLET PO PRN (00:18)
[2023-02-13] MEDS ORDERED: ONDANSETRON 4 MG/2 ML VIAL IVP PRN (00:18)
[2023-02-13] MEDS ORDERED: ONDANSETRON ODT 4 MG TABLET TL PRN (00:18)
[2023-02-13] MEDS ORDERED: ZOLPIDEM 5 MG TABLET PO PRN (00:18)
[2023-02-13] MEDS ORDERED: oxyCODONE 5 MG TABLET PO PRN (00:18)
[2023-02-13] MEDS ORDERED: SODIUM CHLORIDE FLUSH 0.9% 10 ML SYRINGE IVP PRN (00:18)
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
[2023-02-13] MEDS: HYDROmorphone 0.5 MG/0.5 ML SYRINGE IVP PRN ×2 (01:53→05:03)
[2023-02-13] MEDS: SODIUM CHLORIDE FLUSH 0.9% 10 ML SYRINGE IVP SCH ×2 (01:59→11:24)
[2023-02-13] MEDS: LACTATED RINGERS 1,000 ML IV SCH ×2 (01:59→06:06)
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
[2023-02-13 02:35] LABS: BILIRUBIN,URINE NEGATIVE (NEGATIVE); GLUCOSE, URINE (UA) NEGATIVE (NEGATIVE); KETONES,URINE (UA) NEGATIVE (NEGATIVE); LEUKOCYTE ESTERASE, URINE NEGATIVE (NEGATIVE); NITRITE,URINE NEGATIVE (NEGATIVE); OCCULT BLOOD,URINE NEGATIVE (NEGATIVE); PH,URINE 6.5 PH (5.0-7.5); PROTEIN,URINE NEGATIVE (NEGATIVE); UROBILINOGEN,URINE 0.2 (NORMAL) E.U./dL (NORMAL)
[2023-02-13 02:42] LABS: CLARITY,URINE CLEAR (CLEAR)
[2023-02-13] MEDS ORDERED: ceFAZolin 1 GM in SODIUM CHLORIDE 0.9% MINIBAG 100 ML IV STA (03:13)
[2023-02-13 03:24] LABS: B. PARAPERTUSSIS- RESP PCR PAN NOT DETECTED; B. PERTUSSIS- RESP PCR PANEL NOT DETECTED; C. PNEUMONIAE- RESP PCR PANEL NOT DETECTED; CORONAVIRUS 229E-RESP PCR NOT DETECTED; CORONAVIRUS HKU1-RESP PCR NOT DETECTED; CORONAVIRUS NL63-RESP PCR NOT DETECTED; CORONAVIRUS OC43-RESP PCR NOT DETECTED; HUMAN METAPNEUMOVIRUS NOT DETECTED; INFLUENZA A- RESP PCR PANEL NOT DETECTED; INFLUENZA B - RESP PCR PANEL NOT DETECTED; M. PNEUMONIAE- RESP PCR PANEL NOT DETECTED; PARAINFLUENZA VIRUS 1 NOT DETECTED; PARAINFLUENZA VIRUS 2 NOT DETECTED; PARAINFLUENZA VIRUS 3 NOT DETECTED; PARAINFLUENZA VIRUS 4 NOT DETECTED; RHINOVIRUS/ENTEROVIRUS NOT DETECTED; RSV- RESP PCR PANEL NOT DETECTED; SARS-CoV-2 -RESP PCR PANEL NOT DETECTED
[2023-02-13] MEDS ORDERED: iohexoL-300 100 ML VIAL IVP ONE (03:34)
[2023-02-13] MEDS ORDERED: ceFAZolin 1 GM VIAL ONE (03:49)
[2023-02-13] MEDS ORDERED: TETANUS/DIPHTHERIA/PERTUSSIS 0.5 ML SYRINGE IM ONE (03:49)
[2023-02-13 08:24] VITALS: BP 104/62; O2SAT 95
[2023-02-13] MEDS ORDERED: FAMOTIDINE 20 MG TABLET PO SCH (09:00)
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
--- NOTE | 2023-02-13 12:11 | Discharge Plan ---
Discharge Plan Problem Reviewed?: Yes Disposition: Home, Self Care Condition: Fair Prescriptions: oxyCODONE [Roxicodone] 5 mg PO Q4HR PRN #10 tab PRN Reason: Pain 5 to 7 Walker [Ultra-Light Rollator] 1 each MC ONCE #1 each Diet: Regular Activity Restrictions: Additional Comments (Restrictions on motion and use of left hand per Dr. Lou) Shower Restrictions: No Driving Restrictions: Yes (No driving.) Weight Bearing: With walker Plan of Treatment: For anemia - establish care with primary physician to begin workup and treatment For delusional parasitosis - establish care with primary physician to begin workup and treatment For metacarpal fracture - follow up with Dr. Caputo in his office in 2 days (Address [address] [facility], tel# ) For pelvic fracture should heal on own but can also follow up with Dr. Lou Additional Instructions or Follow Up instructions: Keep LEFT hand elevated. No Smoking: If you smoke, Please STOP! Call for help. Follow-up with: Mason Jones MD [Provider Admit Priv/Credential] - Efrain Ramirez MD [Provider Admit Priv/Credential] -
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
== END 2023-02-13 15:00 | disposition home or self-care (01) ==
LOC: EDUNIT# → ED 22:37 → OBS 02-13 00:18 → UNDOADMOB 02-13 00:18 → MS2 02-13 00:18 → UNDODISOB 02-13 15:00
PROVIDERS: ADMIT Surgery; ATTEND Surgery
DX: S32.511A Fracture of superior rim of right pubis, initial encounter for closed fracture (principal); S62.337B Displaced fracture of neck of fifth metacarpal bone, left hand, initial encounter for open fracture; S22.31XA Fracture of one rib, right side, initial encounter for closed fracture; V20.59XA Other motorcycle passenger injured in collision with pedestrian or animal in traffic accident, initial encounter; D64.9 Anemia, unspecified; F22 Delusional disorders; F17.200 Nicotine dependence, unspecified, uncomplicated; Z23 Encounter for immunization
CPT/HCPCS: 26605; 36415; 70450; 71045; 71260; 72125; 72170; 73130; 74177; 80053; 80320; 81003; 83690; 84703; 85025; 86850; 86900; 86901; 87633; 90471; 90715; 96365; 96375; 99284; 99285; A9270; G0378; J1170; J7120; Q9967; 26755; 29105; 81001; 87086

== ENCOUNTER 2023-02-17 10:42 | Day surgery (SDC) | payer MEDICAID ==
[2023-02-17] MEDS ORDERED: LACTATED RINGERS 1,000 ML IV ONE ×2 (10:55→13:41)
[2023-02-17] MEDS ORDERED: CELECOXIB 100 MG CAPSULE PO ONE (10:58)
[2023-02-17] MEDS ORDERED: ACETAMINOPHEN 500 MG TABLET PO ONE (10:59)
[2023-02-17] MEDS ORDERED: ceFAZolin 2 GM VIAL ONE (10:59)
[2023-02-17] MEDS ORDERED: BUPIVACAINE 0.25% PF 30 ML VIAL ONE (11:27)
[2023-02-17] MEDS ORDERED: MIDAZOLAM 2 MG/2 ML VIAL ONE (11:49)
[2023-02-17] MEDS ORDERED: fentaNYL 100 MCG/2 ML VIAL ONE ×2 (11:49→14:10)
[2023-02-17] MEDS ORDERED: LIDOCAINE-PF 2% 10 ML AMP SUBQ ONE (12:07)
[2023-02-17] MEDS ORDERED: DEXAMETHASONE 4 MG/ML VIAL ONE (12:13)
[2023-02-17] MEDS ORDERED: ONDANSETRON 4 MG/2 ML VIAL ONE (12:13)
[2023-02-17] MEDS ORDERED: ATROPINE ABBOJECT 1 MG/10 ML SYRINGE IVP PRN (12:18)
[2023-02-17] MEDS ORDERED: fentaNYL 100 MCG/2 ML VIAL IVP PRN (12:18)
[2023-02-17] MEDS ORDERED: NALOXONE 0.4 MG/ML VIAL IVP PRN (12:18)
[2023-02-17] MEDS ORDERED: ONDANSETRON 4 MG/2 ML VIAL IVP PRN ×2 (12:18→13:39)
[2023-02-17] MEDS ORDERED: BUPIVACAINE 0.25% PF 30 ML VIAL SUBQ ONE (12:18)
[2023-02-17] MEDS ORDERED: ePHEDrine 50 MG/ML VIAL IVP PRN (12:18)
--- NOTE | 2023-02-17 12:18 | ANESTHESIA ---
Pre-Anesthesia VS, & Labs - Diagnosis L 5th metacarpal fx - Procedure L 5th metacarpal fx repair Vital Signs: Temp Pulse Resp BP Pulse Ox O2 Flow Rate 36.9 C 86 16 134/97 H 100 0 02/17/23 11:06 02/17/23 11:06 02/17/23 11:06 02/17/23 11:06 02/17/23 11:06 02/17/23 11:06 Height: 5 ft 5 in Weight (kg): 61.2 kg Body Mass Index: 22.4 BMI Classification: Normal - NPO >8 hours - Is Patient ?: No, Waiver signed - Lab Results Lab results reviewed: Yes Home Medications and Allergies Home Medications: Ambulatory Orders Acetaminophen [Tylenol] 500 mg PO ONCE 02/16/23 Ibuprofen [Motrin] 600 mg PO Q6H PRN 02/16/23 Acetaminophen [Tylenol] 500 mg PO ONCE 02/16/23 Ibuprofen [Motrin] 600 mg PO Q6H PRN 02/16/23 Allergies/Adverse Reactions: Allergies Allergy/AdvReac Type Severity Reaction Status Date / Time No Known Drug Allergies Allergy Verified 02/12/23 23:22 Anes History & Medical History - Anesthetic History Anesthesia Complications: reports: No previous complications Family history of Anesthesia Complications: Denies Family history of Malignant Hyperthermia: Denies - Medical History Cardiovascular: reports: None Pulmonary: reports: None Gastrointestinal: reports: None Urinary: reports: None Neuro: reports: None Musculoskeletal: reports: None Endocrine/Autoimmune: reports: None Blood Disorders: reports: None Skin: reports: None Smoking Status: Current every day smoker Psychosocial: reports: Amphetamine, Cannabis - Surgical History Gynecologic: reports: Tubal ligation Exam General: Alert, Oriented x3, Cooperative Mouth and Teeth Image: 1 - chipped Mouth Openin Fingerbreadth Neck Mobility: Normal Mallampati classification: I Thyromental Distance: 4-6 cm Respiratory: Lungs clear Cardiovascular: Regular rate Plan Anesthesia Type: General Consent for Procedure(s) Verified and Reviewed: Yes Code Status: Attempt Resuscitation ASA classification: 2-Mild systemic disease Is this case an emergency?: No
[2023-02-17] MEDS ORDERED: ePHEDrine 50 MG/ML VIAL IVP ONE (12:34)
[2023-02-17] MEDS ORDERED: LACTATED RINGERS 1,000 ML IV SCH (13:00)
[2023-02-17] MEDS ORDERED: oxyCODONE 5 MG TABLET PO PRN (13:39)
[2023-02-17] MEDS ORDERED: ACETAMINOPHEN 500 MG TABLET PO PRN (13:39)
[2023-02-17] MEDS ORDERED: CELECOXIB 100 MG CAPSULE PO PRN (13:39)
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
[2023-02-17] MEDS: HYDROmorphone 0.5 MG/0.5 ML SYRINGE IVP PRN ×2 (13:44→13:50)
[2023-02-17] MEDS ORDERED: HYDROmorphone 0.5 MG/0.5 ML SYRINGE ONE (13:53)
[2023-02-17 14:48] VITALS: BP 130/87; O2SAT 100
[2023-02-17] MEDS ORDERED: oxyCODONE 5 MG TABLET ONE (14:48)
--- NOTE | 2023-02-17 16:53 | ANESTHESIA POST OP EVALUATION ---
Anesthesia Post Eval - Post Anesthesia Eval Vitals: Last Vital Signs Temp 36.2 C L 02/17/23 14:44 Pulse 82 02/17/23 14:44 Resp 16 02/17/23 14:44 BP 130/87 H 02/17/23 14:44 Pulse Ox 100 02/17/23 14:44 O2 Flow Rate 0 02/17/23 11:06 CV Function Including HR & BP: Stable Pain Control: Satisfactory Nausea & Vomiting: Negative Mental Status: Baseline Respiratory Status: Airway Patent Hydration Status: Satisfactory Anesthesia Complications: None
--- NOTE | 2023-02-23 09:48 | XRAY Report ---
PROCEDURE: OR C-Arm Procedure INDICATIONS: ORIF WRIST FLUORO TIME: 0:57 MIN TECHNIQUE: Multiple (more than 3 views) of the wrist. COMPARISON: 02/13/2023 Findings and impression: Multiple fluoroscopic views were obtained for fifth metacarpal fracture pinning. Please see operative note for full details. Fluoroscopy time was 0:55 minutes Reviewed by: Vaibhav Kaur MD on 02/23/2023 9:47 AM PST Approved by: Vaibhav Kaur MD on 02/23/2023 9:47 AM PST Station ID: [id number]
== END 2023-02-17 10:43 | disposition home or self-care (01) ==
LOC: SDS 10:42
PROVIDERS: ATTEND Orthopaedic Surgery
DX: S62.327A Displaced fracture of shaft of fifth metacarpal bone, left hand, initial encounter for closed fracture (principal); F17.200 Nicotine dependence, unspecified, uncomplicated
CPT/HCPCS: 26615; A9270; C1713; J1170; J7120

== ENCOUNTER 2023-02-23 08:00 | Outpatient (CLI) | payer MEDICAID ==
--- NOTE | 2023-02-23 14:20 | XRAY Report ---
PROCEDURE: Hand 3 View LT INDICATIONS: LEFT HAND FRACTURE TECHNIQUE: 3 views of the hand(s) acquired. COMPARISON: Left hand radiographs 02/13/2023. FINDINGS: Bones: Prior fifth metacarpal head fracture. There is interval pinning x2. The fracture demonstrates anatomic alignment. No dislocations. No suspicious bony lesions. Soft tissues: No suspicious soft tissue calcifications or masses. IMPRESSION: Improved alignment of the fifth metacarpal head fracture post pinning. Reviewed by: Reno Perez MD on 02/23/2023 2:19 PM PST Approved by: Reno Perez MD on 02/23/2023 2:19 PM PST Station ID: [id number]
== END 2023-02-23 08:01 | disposition home or self-care (01) ==
LOC: DI.WOS 08:00
PROVIDERS: ATTEND Orthopaedic Surgery
DX: S62.327D Displaced fracture of shaft of fifth metacarpal bone, left hand, subsequent encounter for fracture with routine healing (principal)

== ENCOUNTER 2023-03-09 08:00 | Outpatient (CLI) | payer MEDICAID ==
--- NOTE | 2023-03-09 21:44 | XRAY Report ---
PROCEDURE: Hand 3 View LT INDICATIONS: LEFT HAND FRACTURE TECHNIQUE: 3 views of the hand(s) acquired. COMPARISON: Left hand radiograph on February 23, 2023 and prior. FINDINGS: Bones: Interval removal of K wire fixation of the comminuted, impacted fifth metacarpal head/neck fr acture. Slight interval callus formation. Fracture planes remain conspicuous. Stable alignment. No fr actures or dislocations. No suspicious bony lesions. Sclerotic lesion in the third metacarpal head/n jc with narrow zone of transition, likely a benign enostosis. Soft tissues: No suspicious soft tissue calcifications or masses. Moderate soft tissue swelling ab out the lateral hand persists. IMPRESSION: Mild interval osseous healing of comminuted, impacted fracture of fifth metacarpal head/neck fracture . Fracture planes remain conspicuous. Stable alignment. Reviewed by: Lalit Barrios MD on 03/09/2023 9:42 PM PST Approved by: Lalit Barrios MD on 03/09/2023 9:42 PM PST Station ID: [id number]
== END 2023-03-09 23:59 | disposition home or self-care (01) ==
LOC: DI.WOS 08:00
PROVIDERS: ATTEND Orthopaedic Surgery
DX: S62.327D Displaced fracture of shaft of fifth metacarpal bone, left hand, subsequent encounter for fracture with routine healing (principal)

== ENCOUNTER 2023-10-21 12:45 | Outpatient (CLI) | payer MEDICAID | END 2023-10-21 23:59 | disposition EMS.NT | LOC: EMS 12:45 | DX: K42.9 Umbilical hernia without obstruction or gangrene (principal); R46.89 Other symptoms and signs involving appearance and behavior ==